=== PATIENT | male | born 1955 | race Caucasian/White ===

== ENCOUNTER 2018-06-23 03:02 | Emergency (ER) | payer OTHER, SELFPAY ==
[2018-06-23] VITALS (85 sets, daily range): BP systolic 92–127; BP diastolic 68–94; PULSE 97–128; RESP 12–28; TEMP 36.1–36.7; O2SAT 80–100
--- NOTE | 2018-06-23 02:53 | W.ED.GENAD ---
Discharge Plan Disposition Patient Disposition: [facility] Condition: Stable Discharge Details Chief Complaint: Orthopedic Clinical Impression: Hyponatremia, Fall, Contusion of hip Reason For Visit: EDD Primary Care Provider: [place] Provider: Donovan Hoover Home Meds and New Rx's Prescriptions: No Action metoprolol tartrate 100 MG tablet 100 mg PO DAILY RF: 0 aspirin [Aspir-81] 81 MG tablet,delayed release (DR/EC) 81 mg PO DAILY RF: 0 omeprazole 20 MG capsule,delayed release(DR/EC) 20 mg PO DAILY RF: 0 lisinopril 5 MG tablet 10 mg PO DAILY RF: 0 albuterol sulfate 8.5 GM HFA aerosol inhaler 2 puff Inhalation .Q4-6H PRNRF: 0 finasteride 5 MG tablet 5 mg PO DAILY RF: 0 Symbicort 160-4.5 mcg/actuation Hfa Aerosol Inhaler 2 puff INHALATION BID RF: 0 Spiriva Respimat 2.5 mcg/actuation Mist 1 puff INHALATION DAILY RF: 0 Medical Decision Making 62 yo male with hx of htn, copd and continued smoker, daily alcohol user of 3-4 beers per patient, comes in with right hip pain. He states he woke up from sleep around midnight and stood up to go to the bathroom. He felt lightheaded and felll landing on his right side. Did not hit his head or have loc per pt. He states he gets lightheaded and dizzy when standing a lot and has so for years. He denies chest pain, sob, headache, neck pain, abdominal pain. He has pain in the right hip and can't move it due to pain. Will obtain xray and given his lightheadeness, obtain ecg, eval for electrolyte abnormalities and cardiac ischemic (though unlikely given lack of chest pain or sob). He has no headache or neck pain and denies hitting head so do not feel head or c spine imaging indicated at this time pt's imaging still pending, labs show na of 119 that is likely beer protomania. xrays unremarkable. Is able to range his right hip but limited due to pain. I spoke with Dr. De Jesus at the [facility] who accepts the pt in transfer Differential Diagnosis fracture, dislocation, contusion Imaging Data Radiologic Study: Attestation: I personally reviewed and interpreted this imaging study as follows: Imaging: X-Ray Radiologist's impression: no acute findings hip xray Radiologic Study #2: Imaging: X-Ray Radiologist's impression: no acute findings femur xray Radiologic Study #3: Attestation: I personally reviewed and interpreted this imaging study as follows: Imaging: X-Ray Radiologist's impression: no acute findings chest xray Lab Data Lab results reviewed: Yes I reviewed the patient's lab results. ECG Data Attestation: I personally reviewed and interpreted this ECG (s) as follows: Prior ECG tracings: available for review Interpretation: sinsu rhyth, rate of 105, pr 154, no acute st t wave changes HPI General Mode of arrival: EMS. Date/Time Provider Initiated Documentation: 06/23/18 03:09. Limitations to Documentation: no limitations. Information obtained by: patient. History of Present Illness 62 year old M presents to the emergency department with the chief complaint of right hip pain, described as moderate and severe, with intensity rated at 8. Quality is described as aching and crushing, and is localized to the right and lower extremity. Patient reports no radiation. Patient started experiencing this hour(s) (3) and it has been constant. No relieving factors improve symptom(s), No exacerbating factors reported . Patient did receive the following treatments prior to arrival, other (fentanyl with ems) Related Data Home Medications Medication Instructions Recorded Confirmed albuterol sulfate 2 puff INHALATION .Q4-6H PRN 07/12/14 06/23/18 aspirin [Aspir-81] 81 mg PO DAILY 07/12/14 06/23/18 finasteride 5 mg PO DAILY 07/12/14 06/23/18 lisinopril 10 mg PO DAILY 07/12/14 06/23/18 metoprolol tartrate 100 mg PO DAILY 07/12/14 06/23/18 omeprazole 20 mg PO DAILY 07/12/14 06/23/18 budesonide-formoterol [Symbicort] 2 puff INHALATION BID 06/23/18 06/23/18 tiotropium bromide [Spiriva 1 puff INHALATION DAILY 06/23/18 06/23/18 Respimat] Allergies Allergy/AdvReac Type Severity Reaction Status Date / Time No Known Allergies Allergy Unverified 07/12/14 10:11 Review of Systems Review of Systems All systems reviewed & are unremarkable except as noted in HPI and below Constitutional Denies chills and Denies fever(s) ENT Denies change in voice Cardiovascular Denies chest pain and Denies dyspnea Respiratory Denies cough and Denies dyspnea Gastrointestinal Denies abdominal pain, Denies nausea and Denies vomiting Genitourinary Denies dysuria Musculoskeletal Denies joint swelling Integumentary/Breasts Denies rash PFSH Social History Smoking/Tobacco Use Status: Current every day Exam Const General: no acute distress Orientation: alert HENMT Head: normal to inspection Ears: external ears normal General nose exam: external nose normal Mouth: moist mucous membranes Eyes General: appearance normal, both eyes and all related structures Neck Neck: normal visual inspection Resp Effort & Inspection: normal respiratory effort and able to speak in complete sentences Cardio Rate: regular rate Skin General skin exam: no rashes or lesions noted Neuro General: alert and oriented x3 Extrem General: normal capillary refill Psych Mental Status: mental status grossly normal
--- NOTE | 2018-06-23 03:08 | ED.GENADUL_ITS ---
Discharge Plan Disposition Patient Disposition: [facility] Condition: Stable Discharge Details Chief Complaint: Orthopedic Clinical Impression: Hyponatremia, Fall, Contusion of hip Reason For Visit: EDD Primary Care Provider: [place] Provider: Donovan Hoover Home Meds and New Rx's Prescriptions: No Action metoprolol tartrate 100 MG tablet 100 mg PO DAILY RF: 0 aspirin [Aspir-81] 81 MG tablet,delayed release (DR/EC) 81 mg PO DAILY RF: 0 omeprazole 20 MG capsule,delayed release(DR/EC) 20 mg PO DAILY RF: 0 lisinopril 5 MG tablet 10 mg PO DAILY RF: 0 albuterol sulfate 8.5 GM HFA aerosol inhaler 2 puff Inhalation .Q4-6H PRNRF: 0 finasteride 5 MG tablet 5 mg PO DAILY RF: 0 Symbicort 160-4.5 mcg/actuation Hfa Aerosol Inhaler 2 puff INHALATION BID RF: 0 Spiriva Respimat 2.5 mcg/actuation Mist 1 puff INHALATION DAILY RF: 0 Medical Decision Making 62 yo male with hx of htn, copd and continued smoker, daily alcohol user of 3-4 beers per patient, comes in with right hip pain. He states he woke up from sleep around midnight and stood up to go to the bathroom. He felt lightheaded and felll landing on his right side. Did not hit his head or have loc per pt. He states he gets lightheaded and dizzy when standing a lot and has so for years. He denies chest pain, sob, headache, neck pain, abdominal pain. He has pain in the right hip and can't move it due to pain. Will obtain xray and given his lightheadeness, obtain ecg, eval for electrolyte abnormalities and cardiac ischemic (though unlikely given lack of chest pain or sob). He has no headache or neck pain and denies hitting head so do not feel head or c spine imaging indicated at this time pt's imaging still pending, labs show na of 119 that is likely beer protomania. xrays unremarkable. Is able to range his right hip but limited due to pain. I spoke with Dr. De Jesus at the [facility] who accepts the pt in transfer Differential Diagnosis fracture, dislocation, contusion Imaging Data Radiologic Study: Attestation: I personally reviewed and interpreted this imaging study as follows: Imaging: X-Ray Radiologist's impression: no acute findings hip xray Radiologic Study #2: Imaging: X-Ray Radiologist's impression: no acute findings femur xray Radiologic Study #3: Attestation: I personally reviewed and interpreted this imaging study as follows: Imaging: X-Ray Radiologist's impression: no acute findings chest xray Lab Data Lab results reviewed: Yes I reviewed the patient's lab results. ECG Data Attestation: I personally reviewed and interpreted this ECG (s) as follows: Prior ECG tracings: available for review Interpretation: sinsu rhyth, rate of 105, pr 154, no acute st t wave changes HPI General Mode of arrival: EMS . Date/Time Provider Initiated Documentation: 06/23/18 03:09 . Limitations to Documentation: no limitations . Information obtained by: patient . History of Present Illness 62 year old M presents to the emergency department with the chief complaint of right hip pain, described as moderate and severe, with intensity rated at 8. Quality is described as aching and crushing, and is localized to the right and lower extremity. Patient reports no radiation. Patient started experiencing this hour(s) (3) and it has been constant. No relieving factors improve symptom(s), No exacerbating factors reported . Patient did receive the following treatments prior to arrival, other (fentanyl with ems) Related Data Home Medications Medication Instructions Recorded Confirmed albuterol sulfate 2 puff INHALATION .Q4-6H PRN 07/12/14 06/23/18 aspirin [Aspir-81] 81 mg PO DAILY 07/12/14 06/23/18 finasteride 5 mg PO DAILY 07/12/14 06/23/18 lisinopril 10 mg PO DAILY 07/12/14 06/23/18 metoprolol tartrate 100 mg PO DAILY 07/12/14 06/23/18 omeprazole 20 mg PO DAILY 07/12/14 06/23/18 budesonide-formoterol [Symbicort] 2 puff INHALATION BID 06/23/18 06/23/18 tiotropium bromide [Spiriva 1 puff INHALATION DAILY 06/23/18 06/23/18 Respimat] Allergies Allergy/AdvReac Type Severity Reaction Status Date / Time No Known Allergies Allergy Unverified 07/12/14 10:11 Review of Systems Review of Systems All systems reviewed & are unremarkable except as noted in HPI and below Constitutional Denies chills and Denies fever(s) ENT Denies change in voice Cardiovascular Denies chest pain and Denies dyspnea Respiratory Denies cough and Denies dyspnea Gastrointestinal Denies abdominal pain, Denies nausea and Denies vomiting Genitourinary Denies dysuria Musculoskeletal Denies joint swelling Integumentary/Breasts Denies rash PFSH Social History Smoking/Tobacco Use Status: Current every day Exam Const General: no acute distress Orientation: alert HENMT Head: normal to inspection Ears: external ears normal General nose exam: external nose normal Mouth: moist mucous membranes Eyes General: appearance normal, both eyes and all related structures Neck Neck: normal visual inspection Resp Effort & Inspection: normal respiratory effort and able to speak in complete sentences Cardio Rate: regular rate Skin General skin exam: no rashes or lesions noted Neuro General: alert and oriented x3 Extrem General: normal capillary refill Psych Mental Status: mental status grossly normal
[2018-06-23 03:22] LABS: Abs Immature Grans 0.04 k/cumm (0.0-0.09); Absolute Basophil Count 0.05 k/cumm (0.0-0.2); Absolute Eosinophil Count 0.18 k/cumm (0.0-0.7); Absolute Lymphocyte Count 1.06 k/cumm (1.2-3.4); Absolute Monocyte Count 0.55 k/cumm (0.11-0.7); Absolute Neutrophil Count 8.51 k/cumm (1.2-6.7); Basophils % 0.5; Eosinophils % 1.7; HCT 39.3 % (40.0-50.0); HGB 14.3 g/dL (13.5-17.5); Immature Grans % 0.4; Lymphocytes % 10.2; Mean Corp. HGB Concentration 36.4 g/dL (32.0-36.0); Mean Corpuscular Volume 93.6 fL (80-95); Mean Platelet Volume 8.9 fL (8.0-11.0); Monocytes % 5.3; Neutrophils % 81.9; Platelet Count 179 x1000/uL (130-400); RBC Distribution Width 12.5 % (11.8-14.1); White Blood Cell Count 10.39 k/cumm (4.4-10.8)
[2018-06-23 03:33] LABS: Magnesium 1.9 mg/dL (1.8-2.4)
[2018-06-23 03:39] LABS: ALT 91 U/L (12-78); AST 120 U/L (15-37); Albumin 4.1 g/dL (3.4-5.0); Alkaline Phosphatase 137 U/L (46-116); Anion Gap 16.4 mmol/L (3-11); BUN 6 mg/dL (7-18); Bilirubin, Total 0.6 mg/dL (0.2-1.0); CO2 20.6 mmol/L (21.0-32.0); CREATININE 0.52 mg/dL (0.70-1.30); Calcium 8.7 mg/dL (8.5-10.1); Chloride 82 mmol/L (98-107); Glucose 93 mg/dL (70-100); Potassium 4.5 mmol/L (3.5-5.1); Total Protein 7.8 g/dL (6.4-8.2)
[2018-06-23 03:40] LABS: PTT Activated 24.6 sec (21.0-31.4); Prothrombin Time 9.9 sec (9.3-11.0)
[2018-06-23 03:43] LABS: Troponin I < 0.02 ng/mL (0.00-0.06)
[2018-06-23 03:44] LABS: Sodium 119 mmol/L (136-145)
[2018-06-23] MEDS: HYDROmorphone 2 MG/ML VIAL 1 MG IVP ×2 (03:46→05:15)
[2018-06-23] MEDS: Ondansetron 4 MG/2 ML VIAL IVP (03:46)
[2018-06-23] MEDS: Normal Saline 50 ML 200 ML (03:47)
[2018-06-23] MEDS: Normal Saline Flush 10 ML SYR IVP (03:47)
--- NOTE | 2018-06-23 03:49 | DI.RAD_ITS ---
SYMPTOM/DIAGNOSIS: FALL. CHEST X-RAY: Frontal views were obtained. Comparison 07/07/16 The heart size and pulmonary vasculature are within normal limits. There are old bilateral rib fractures. The lungs show no evidence of acute pneumonia or congestive heart failure. The lungs show evidence of underlying COPD and pulmonary scarring. No effusions or pneumothoraces are identified. IMPRESSION: No acute pulmonary process.
--- NOTE | 2018-06-23 03:49 | DI.COMBO_ITS ---
SYMPTOM/DIAGNOSIS: PAIN, S/P FALL. RIGHT HIP PAIN RIGHT FEMUR, RT HIP AND PELVIS: No acute fracture or dislocation is identified. There is again seen an intramedullary shey and nail transfixing an old right femoral neck fracture. The orthopaedic hardware appears intact. The soft tissues are grossly unremarkable. IMPRESSION: No acute fracture or dislocation.
[2018-06-23] MEDS: Normal Saline 1,000 ML 75 ML IV (03:50)
[2018-06-23 06:06] LABS: Sodium, Urine 21 mmol/L
--- NOTE | 2018-06-23 06:53 | DI.VRAD_ITS ---
EXAM: XR Right Hip with Pelvis when Performed, 2 or 3 Views EXAM DATE/TIME: 06/23/2018 3:04 AM CLINICAL HISTORY: 62 years old, male; Injury or trauma; Fall; Initial encounter; Blunt trauma (contusions or hematomas); Right; Hip; Injury date: 06/23/2018; Prior surgery; Surgery date: 6+ months; Surgery type: Femur shey TECHNIQUE: XR Right hip with pelvis when performed, 2 or 3 views COMPARISON: CR RIGHT HIP 1 VIEW 07/12/2014 12:37 PM FINDINGS: Bones/joints: Right femoral shey and hip screw grossly intact as visualized No acute fracture. Peak generative changes in the hip and lower lumbar spine Soft tissues: Normal. IMPRESSION: No acute fracture observed Dictated and Authenticated by: Lawson Melgar MD. Ordering:JACEK Man MD
--- NOTE | 2018-06-23 06:53 | DI.VRAD_ITS ---
EXAM: XR Right Femur, 2 Views EXAM DATE/TIME: 06/23/2018 3:09 AM CLINICAL HISTORY: 62 years old, male; Injury or trauma; Fall; Initial encounter; Blunt trauma; Hip; Right; Injury date: 06/23/2018; Prior surgery; Surgery date: 6+ months; Surgery type: Femur shey TECHNIQUE: XR Right femur, 2 views COMPARISON: No relevant prior studies available. FINDINGS: Bones/joints: Femoral shey grossly intact as visualized No acute fracture. Soft tissues: Normal. IMPRESSION: No acute findings. Dictated and Authenticated by: Lawson Melgar MD. Ordering:JACEK Man MD
--- NOTE | 2018-06-23 06:53 | DI.VRAD_ITS ---
EXAM: XR Chest, 1 View EXAM DATE/TIME: 06/23/2018 3:04 AM CLINICAL HISTORY: 62 years old, male; Injury or trauma; Fall; Initial encounter; Blunt trauma (contusions or hematomas); Injury date: 06/23/2018; Injury details: Fell in home, ? hip fracture TECHNIQUE: XR of the chest, 1 view. COMPARISON: CR CHEST 2 VIEWS PA,LAT 07/07/2016 1:24 PM FINDINGS: Lungs: Emphysema and scarring is grossly stable No consolidation. Pleural space: No pleural effusion. No pneumothorax. Heart/Mediastinum: Grossly stable. Bones/joints: Chronic bilateral rib fractures are grossly stable Surgical clips are grossly stable in appearance IMPRESSION: Grossly stable radiographic appearance to the chest. Further evaluation as clinically indicated Dictated and Authenticated by: Lawson Melgar MD. Ordering:JACEK Man MD
[2018-06-23] MEDS: LORazepam 2 MG/ML VIAL IVP (08:02)
== END 2018-06-23 11:07 | disposition short-term general hospital (02) ==
PROVIDERS: Emergency Provider Emergency Medicine; PCP Internal Medicine
DX: E87.1 Hypo-osmolality and hyponatremia (principal); S70.01XA Contusion of right hip, initial encounter; R42 Dizziness and giddiness; I10 Essential (primary) hypertension; J44.9 Chronic obstructive pulmonary disease, unspecified; F17.210 Nicotine dependence, cigarettes, uncomplicated; W01.0XXA Fall on same level from slipping, tripping and stumbling without subsequent striking against object, initial encounter
CPT/HCPCS: 36415; 73552; 80053; 86850; 86900; 86901; 93005; 96361; 96374; 96375; 96376; 99285; 71045; 73502; 80320; 83735; 84300; 84484; 85025; 85610; 85730; 93010; J2060; J2405

== ENCOUNTER 2018-07-08 12:14 | Outpatient (REF) | payer OTHER, SELFPAY ==
[2018-07-08 13:56] LABS: BUN 11 mg/dL (7-18); CREATININE 0.46 mg/dL (0.70-1.30); Calcium 9.1 mg/dL (8.5-10.1); Chloride 99 mmol/L (98-107); Glucose 89 mg/dL (70-100); Potassium 4.3 mmol/L (3.5-5.1); Sodium 134 mmol/L (136-145)
== END 2018-07-08 12:34 ==
LOC: LBN 12:14
PROVIDERS: PCP Internal Medicine; Visit Provider Internal Medicine
DX: E87.1 Hypo-osmolality and hyponatremia (principal)
CPT/HCPCS: 80048

== ENCOUNTER 2018-07-15 14:16 | Outpatient (REF) | payer OTHER, SELFPAY ==
[2018-07-15 14:50] LABS: ALT 21 U/L (12-78); AST 21 U/L (15-37); Albumin 3.3 g/dL (3.4-5.0); Alkaline Phosphatase 266 U/L (46-116); Anion Gap 9.6 mmol/L (3-11); BUN 12 mg/dL (7-18); Bilirubin, Total 0.2 mg/dL (0.2-1.0); CO2 26.4 mmol/L (21.0-32.0); CREATININE 0.54 mg/dL (0.70-1.30); Calcium 8.5 mg/dL (8.5-10.1); Chloride 98 mmol/L (98-107); Glucose 96 mg/dL (70-100); Potassium 3.7 mmol/L (3.5-5.1); Sodium 134 mmol/L (136-145); Total Protein 6.4 g/dL (6.4-8.2)
== END 2018-07-15 14:36 ==
LOC: NCHCN 14:16
PROVIDERS: PCP Internal Medicine; Visit Provider Internal Medicine
DX: E87.1 Hypo-osmolality and hyponatremia (principal)
CPT/HCPCS: 80053

== ENCOUNTER 2018-07-22 12:42 | Outpatient (REF) | payer OTHER, SELFPAY ==
[2018-07-22 14:06] LABS: ALT 19 U/L (12-78); AST 16 U/L (15-37); Albumin 3.1 g/dL (3.4-5.0); Alkaline Phosphatase 230 U/L (46-116); Anion Gap 9.5 mmol/L (3-11); BUN 10 mg/dL (7-18); Bilirubin, Total 0.2 mg/dL (0.2-1.0); CO2 25.5 mmol/L (21.0-32.0); CREATININE 0.52 mg/dL (0.70-1.30); Calcium 8.2 mg/dL (8.5-10.1); Chloride 100 mmol/L (98-107); Glucose 132 mg/dL (70-100); Potassium 3.7 mmol/L (3.5-5.1); Sodium 135 mmol/L (136-145); Total Protein 6.1 g/dL (6.4-8.2)
== END 2018-07-22 13:02 ==
LOC: LBN 12:42
PROVIDERS: PCP Internal Medicine; Visit Provider Internal Medicine
DX: J44.9 Chronic obstructive pulmonary disease, unspecified (principal); I10 Essential (primary) hypertension
CPT/HCPCS: 80053

== ENCOUNTER 2018-07-29 14:17 | Outpatient (REF) | payer OTHER, SELFPAY ==
[2018-07-29 14:57] LABS: ALT 21 U/L (12-78); AST 19 U/L (15-37); Albumin 3.6 g/dL (3.4-5.0); Alkaline Phosphatase 203 U/L (46-116); Anion Gap 10.7 mmol/L (3-11); BUN 10 mg/dL (7-18); Bilirubin, Total 0.3 mg/dL (0.2-1.0); CO2 25.3 mmol/L (21.0-32.0); CREATININE 0.59 mg/dL (0.70-1.30); Calcium 9.1 mg/dL (8.5-10.1); Chloride 100 mmol/L (98-107); Glucose 111 mg/dL (70-100); Potassium 4.1 mmol/L (3.5-5.1); Sodium 136 mmol/L (136-145)
== END 2018-07-29 14:37 ==
LOC: LBN 14:17
PROVIDERS: PCP Internal Medicine; Visit Provider Internal Medicine
DX: E22.2 Syndrome of inappropriate secretion of antidiuretic hormone (principal)
CPT/HCPCS: 80053

== ENCOUNTER 2019-04-02 10:35 | Emergency (ER) | payer OTHER, SELFPAY ==
[2019-04-02] VITALS (7 sets, daily range): BP systolic 98–127; BP diastolic 70–92; PULSE 93–114; RESP 11–25; TEMP 35.8; O2SAT 94–97
--- NOTE | 2019-04-02 10:44 | W.ED.GENAD ---
Discharge Plan Discharge Details Chief Complaint: Orthopedic Primary Care Provider: Donovan Mcbride ED Provider: Donna Gore Home Meds and New Rx's Prescriptions: No Action aspirin [Aspir-81] 81 MG tablet,delayed release (DR/EC) 81 mg PO DAILY RF: 0 omeprazole 20 MG capsule,delayed release(DR/EC) 20 mg PO DAILY RF: 0 lisinopril 5 MG tablet 10 mg PO DAILY RF: 0 albuterol sulfate 8.5 GM HFA aerosol inhaler 2 puff Inhalation .Q4-6H PRNRF: 0 finasteride 5 MG tablet 5 mg PO DAILY RF: 0 amlodipine 5 mg Tablet 5 mg PO DAILY RF: 0 tamsulosin [Flomax] 0.4 mg Capsule 0.4 mg PO DAILY RF: 0 Symbicort 160-4.5 mcg/actuation Hfa Aerosol Inhaler 2 puff INHALATION BID RF: 0 Spiriva Respimat 2.5 mcg/actuation Mist 1 puff INHALATION DAILY RF: 0 Discharge Data Discharge Date/Time-TO BE ENTERED AT DEPARTURE: 04/02/19 14:09 Medical Decision Making Patient is 63-year-old male history of BPH, COPD, GERD, hypertension, [place] and chronic alcohol use. Patient is brought in via EMS after fall at home. Reports that he fell after tripping over his cat landing directly onto his right knee. Denies other injury the time of the incident. Patient does smell of alcohol but seems clinically sober. Did not strike of head. No loss of consciousness. States he has never had issues with his knee before, no previous surgeries. Has not been able to ambulate since the time of the fall. Patient given 150 mcg of fentanyl with no real change in his discomfort. Patient was endorsing severe pain in his knee but holds onto his thigh more when reporting pain. Pain seems very much out of proportion with exam. No notable deformity. She does have a small effusion. No evidence of ecchymosis, laceration. He has good distal pulses, no calf tenderness. Able to move his toes well, no change in sensation noted. Plan for imaging. Will give Dilaudid to help with discomfort prior to going to x-ray. Despite 150 mcg of fentanyl and 2 mg of Dilaudid, patient is refusing to move for imaging. X-ray contacted apartment with concerns for the patient's pain and ability to perform imaging. They recommended instead of changing to a noncontrast CT. I do agree with this assessment given the patient's level of discomfort. Order changed to noncontrast CT of the femur and knee. Reviewed CT note today displaced comminuted distal femur fracture. This does not involve the patient's proximal nail. Will consult orthopedics. Consulted with Dr. Jo who advised that appropriate for equipment given the patient's history and fracture is not available here and advised transfer to higher level of care. Consulted with [facility]. Awaiting callback. I requested that imaging be sent out to their facility. Patient has waxing and waning sudden onset of discomfort. He does seem anxious and concerned regarding his large amount of alcohol intake daily. Will give Ativan to help with symptomatic management. Patient is requesting oxygen. I rechecked his O2 and is 98% on room air. However, he does report that he uses albuterol as needed for emphysema. Will give an albuterol nebulizer. Consulted with Dr. Morales with trauma at [facility], he reviewed the images and accepted patient in transfer as a trauma alert. Patient feeling much improved after IV valium. For other [facility] will [facility] them prior to transferring the patient to [facility]. Consult with Dr. Hardy with orthopedics at the OR and they agreed to have the patient in transfer. [facility] by [facility] just prior to patient being discharged who advised that they also do not have the appropriate equipment. Instead, we will transfer the patient to [facility] as initially planned. Discussed this plan with the patient who is in agreement. HPI General Mode of arrival: EMS. Date/Time Provider Initiated Documentation: 04/02/19 10:44. Limitations to Documentation: no limitations. Information obtained by: patient and RN notes reviewed. HPI Narrative: Patient is a 63-year-old male presenting today, brought in via EMS, with chief complaint of right knee pain. He reports that prior to arrival, he tripped over his cat and fell landing directly onto the right knee. Since that time, he has been laying in the same spot until EMS arrived secondary to severe pain. Patient was given 150 mcg of fentanyl per EMS reports only minimal improvement in pain management. He reports that he drank approximately 8 beers per day, states he had 1 alcoholic beverage this morning.. States that he has had use narcotics daily in 2013 but at that time was only for 2 months stent. He denies any numbness or tingling. Denies any other injury the time of the exam. Denies strike his head, no loss of conscious. Pain does not radiate. Related Data Home Medications Medication Instructions Recorded Confirmed albuterol sulfate 2 puff INHALATION .Q4-6H PRN 07/12/14 04/02/19 aspirin [Aspir-81] 81 mg PO DAILY 07/12/14 04/02/19 finasteride 5 mg PO DAILY 07/12/14 04/02/19 lisinopril 10 mg PO DAILY 07/12/14 04/02/19 omeprazole 20 mg PO DAILY 07/12/14 04/02/19 budesonide-formoterol [Symbicort] 2 puff INHALATION BID 06/23/18 04/02/19 tiotropium bromide [Spiriva 1 puff INHALATION DAILY 06/23/18 04/02/19 Respimat] amlodipine 5 mg PO DAILY 04/02/19 04/02/19 tamsulosin [Flomax] 0.4 mg PO DAILY 04/02/19 04/02/19 Allergies Allergy/AdvReac Type Severity Reaction Status Date / Time No Known Allergies Allergy Unverified 04/02/19 10:47 General CLARISA: 3 Review of Systems Constitutional Constitutional: Reports as per HPI, Denies chills, Denies fever(s), Denies headache(s) and Denies weakness ENT Ears, Nose, Mouth, and Throat: Denies headache(s) Cardiovascular Cardiovascular: Reports as per HPI and Denies chest pain Respiratory Respiratory: Reports as per HPI and Denies cough Gastrointestinal Gastrointestinal: Denies abdominal pain and Denies fecal incontinence Genitourinary Genitourinary: Denies urinary incontinence Musculoskeletal Musculoskeletal: Reports as per HPI and Denies tingling Integumentary/Breasts Skin/Breast: Reports as per HPI, Denies rash and Denies wounds Neurologic Neurologic: Reports as per HPI, Denies headache(s), Denies tingling, Denies paresthesias and Denies weakness [facility] Social History Smoking/Tobacco Use Status: Current every day Alcohol Intake: current Alcohol Intake frequency: 0-2 drinks per day Alcohol type: beer Drug use: Never Substance use type: does not use Details: 8 beers a day on average. Do you feel safe at home: Yes Do you feel safe in your relationship?: Yes Exam Const General: cooperative, healthy appearing, uncomfortable, no acute distress, well developed and well groomed Nutritional Appearance: average body habitus and well nourished Orientation: alert and awake Resp Effort & Inspection: normal respiratory effort, able to speak in complete sentences and no respiratory distress Auscultation: clear to auscultation bilaterally Cardio Rate: regular rate Rhythm: regular rhythm Heart Sounds: S1 normal and S2 normal GI Inspection: normal to inspection Palpation: soft and nontender Back/Spine/Pelvis Back: no CVA tenderness Cervical Spine: normal cervical lordosis and cervical ROM normal Thoracic/Lumbar Spine: thoracic and lumbar spine normal to inspection, No paraspinal tenderness, No thoracic spinal tenderness and No lumbar spinal tenderness Pelvis: no pain with anterior-posterior compression and no pain with lateral compression Sacroiliac joints: bilaterally nontender Skin General skin exam: no rashes or lesions noted Lesions: no lesions Rashes: no rashes Trauma: no lacerations or abrasions Neuro General: alert and awake Cognition: normal cognition Speech: speech normal Sensory Exam: no sensory deficits noted (No saddle paresthesias, sensation intact distal to injury) Extrem Right lower extremity: normal capillary refill, hip/thigh (No pain to palpation about the hip), knee (Small effusion is palpable. Patient would not allow me to move, no ecchymo), lower leg Details: normal to inspection and no edema; no erythema, no tenderness, no localized swelling and no palpable cords, ankle Details: normal to inspection and no edema; no tenderness and no swelling and foot (2+ distal pulses, able to move all of his toes); abnormal to inspection (Exam is limited secondary to patient's discomfort) and ROM limited (Unable to assess at this time) Psych Appearance: grossly normal and well kempt Mental Status: mental status grossly normal Speech and Movement: speech and movement normal
[2019-04-02] MEDS: HYDROmorphone 2 MG/ML VIAL IVP (10:50)
[2019-04-02] MEDS: Normal Saline 500 ML IV (10:51)
--- NOTE | 2019-04-02 11:58 | DI.CT_ITS ---
EXAM: CT LOWER EXTREMITY RT WO CLINICAL HISTORY: fall,PAIN TECHNIQUE: The exam was performed according to the usual protocol without contrast. COMPARISON: XR femur RT from 06/23/2018 XR hip RT complete AP pelvis from 06/23/2018 FINDINGS: There are old healed fractures involving the right superior and inferior pubic rami. There an intram edullary shey and screw transfixing an old healed proximal right femoral fracture. The orthopedic toya dware appears in good position. No lucencies are seen in or about the orthopedic hardware. There is a comminuted and impacted fracture involving the diaphyseal region of the distal right femur . The fracture extends into the joint space. The fracture and extends distally into the lateral fem oral condyle. There is a question of a minimally depressed fracture involving the lateral tibial plateau. There is a hemarthrosis which is of small to moderate in size. There is edema and hemorrhage in the posterior aspect of the right knee and thigh. The bones are osteopenic. IMPRESSION: 1. Comminuted impacted intra-articular fracture involving the distal femoral metadiaphysis. The frac ture line extends distally through the lateral femoral condyle. 2. Heme arthrosis and hemorrhage in the soft tissues of the posterior knee and thigh. 3. Stable postsurgical changes of an old proximal right femoral fracture.
--- NOTE | 2019-04-02 12:25 | DI.VRAD_ITS ---
PROCEDURE INFORMATION: Exam: CT Right Lower Extremity Without Contrast; Thigh Exam date and time: 04/02/2019 11:27 AM Age: 63 years old Clinical indication: Injury or trauma; Initial encounter; Blunt trauma; Hip and thigh or upper leg and knee; Right; Injury details: Fall. Pain; Prior surgery; Surgery date: 6+ months; Surgery type: Femur shey; Patient HX: Limited scan. PT scanned lying on left side. Unable to lay supine TECHNIQUE: Imaging protocol: CT of the Right lower extremity without contrast was performed. Exam focused on the thigh. Radiation optimization: All CT scans at this facility use at least one of these dose optimization techniques: automated exposure control; mA and/or kV adjustment per patient size (includes targeted exams where dose is matched to clinical indication); or iterative reconstruction. COMPARISON: CR XR femur RT 06/23/2018 3:30 AM FINDINGS: Bones/joints: Osteopenia. Remote fracture of the inferior pubic ramus on the right. Intramedullary rods and screws in the right femur are in place. No perihardware lucency to suggest loosening. Degenerative changes of the lower lumbar spine and sacroiliac joints. There is a comminuted impacted intra-articular fracture of the distal femoral metadiaphysis. The fracture line extends through the lateral femoral condyle. Soft tissues: There is soft tissue edema and high-density fluid/hemorrhage at the posterior aspect of the knee and distal thigh. Small to moderate knee joint effusion with hemarthrosis. Vasculature: Atherosclerotic disease. IMPRESSION: 1. Comminuted impacted intra-articular fracture of the distal femoral metadiaphysis which extends through the lateral femoral condyle. This is new since radiograph dated June 23, 2018. 2. Hemarthrosis and post contusional changes at the posterior aspect of the knee and distal thigh. Dictated and Authenticated by: Mónica Rossi MD. Ordering:BIJAL Thompson MD
[2019-04-02] MEDS: Albuterol 2.5 MG/3 ML INH SOLN VIAL UPD (12:32)
[2019-04-02] MEDS: diazePAM 10 MG/2 ML SYR 5 MG IVP ×2 (12:36→13:52)
== END 2019-04-02 14:09 ==
LOC: ER 12:17
PROVIDERS: Emergency Provider Physician Assistant; PCP Internal Medicine
DX: S72.351A Displaced comminuted fracture of shaft of right femur, initial encounter for closed fracture (principal); W01.0XXA Fall on same level from slipping, tripping and stumbling without subsequent striking against object, initial encounter; F17.210 Nicotine dependence, cigarettes, uncomplicated; I10 Essential (primary) hypertension; J44.9 Chronic obstructive pulmonary disease, unspecified
CPT/HCPCS: 51702; 94640; 96361; 96374; 96375; 99285; 73700; J3360; J7613

== ENCOUNTER 2019-05-02 11:56 | Outpatient (CLI) | payer OTHER, SELFPAY ==
[2019-05-02 12:30] LABS: Abs Immature Grans 0.03 k/cumm (0.0-0.09); Absolute Basophil Count 0.11 k/cumm (0.0-0.2); Absolute Eosinophil Count 0.59 k/cumm (0.0-0.7); Absolute Lymphocyte Count 1.03 k/cumm (1.2-3.4); Absolute Monocyte Count 0.82 k/cumm (0.11-0.7); Absolute Neutrophil Count 8.27 k/cumm (1.2-6.7); Eosinophils % 5.4; HCT 33.9 % (40.0-50.0); HGB 10.6 g/dL (13.5-17.5); Immature Grans % 0.3 %; Lymphocytes % 9.5; Mean Corp. HGB Concentration 31.3 g/dL (32.0-36.0); Mean Platelet Volume 9.6 fL (8.0-11.0); Monocytes % 7.6; Neutrophils % 76.2; Platelet Count 444 x1000/uL (130-400); RBC 3.53 m/cumm (4.50-6.00); RBC Distribution Width 15.5 % (11.8-14.1); White Blood Cell Count 10.85 k/cumm (4.4-10.8)
[2019-05-02 12:55] LABS: Anion Gap 8.7 mmol/L (3-11); BUN 10 mg/dL (7-18); CO2 29.3 mmol/L (21.0-32.0); CREATININE 0.64 mg/dL (0.70-1.30); Calcium 9.4 mg/dL (8.5-10.1); Chloride 95 mmol/L (98-107); Glucose 84 mg/dL (74-106); Sodium 133 mmol/L (136-145)
== END 2019-05-02 12:16 ==
PROVIDERS: PCP Internal Medicine; Visit Provider Nurse Practitioner Adult Health
DX: E87.1 Hypo-osmolality and hyponatremia (principal)
CPT/HCPCS: 80048; 85025

== ENCOUNTER 2019-07-13 11:11 | Inpatient (IN) | payer OTHER, SELFPAY ==
[2019-07-13] VITALS (47 sets, daily range): BP systolic 120–168; BP diastolic 85–106; PULSE 99–142; RESP 2–28; TEMP 36.3–37.3; O2SAT 94–100
--- NOTE | 2019-07-13 11:32 | DI.CT_ITS ---
EXAM: CT CHEST PE CTA CLINICAL HISTORY: SOB, left chest pain, recent leg fracture TECHNIQUE: Axial CT angiography was performed with multi-slice acquisition and multi-planar and/or [address] angiography of the chest was performed with bolus infusion of 100 cc of Omnipaque 350. COMPARISON: ABD PELVIS WITH CONTRAST from 01/13/2011 XR CHEST 1V IN DI DEPT from 06/23/2018 FINDINGS: Images obtained through the upper abdomen show unremarkable appearance of visualized portions of the liver, spleen, pancreas, adrenals, and kidneys. There are severe changes of bullous emphysema. There is elevation of the diaphragm on the right as n oted on multiple prior examinations. There are multiple old rib fractures bilaterally. There are new fractures of the right 9th and 10th ribs laterally most clearly visualized on the sagit manuel reconstruction. No associated pneumothorax, hemothorax, or pleural effusion. The tracheobronchial tree appears intact. No gross pulmonary emboli although the examination is of i s suboptimal technical quality particularly in the lower lobes due to breathing artifact. Thoracic a lillie is top limits of normal at about 39 millimeters ascending aorta diameter. No evidence of dissec tion or significant aneurysm. No mediastinal or hilar adenopathy. IMPRESSION: Right 9th and 10th rib fractures which appear to be new, posterolaterally. Multiple old rib fracture s noted bilaterally. No other significant acute finding. Severe emphysema.
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
[2019-07-13] MEDS: methylPREDNISolone SUCC 125 MG VIAL IVP (11:45)
[2019-07-13 11:54] LABS: Abs Immature Grans 0.02 k/cumm (0.0-0.09); Absolute Basophil Count 0.03 k/cumm (0.0-0.2); Absolute Eosinophil Count 0.23 k/cumm (0.0-0.7); Absolute Lymphocyte Count 1.04 k/cumm (1.2-3.4); Absolute Monocyte Count 0.49 k/cumm (0.11-0.7); Absolute Neutrophil Count 5.15 k/cumm (1.2-6.7); Basophils % 0.4; Eosinophils % 3.3; HCT 34.7 % (40.0-50.0); HGB 12.3 g/dL (13.5-17.5); Immature Grans % 0.3 %; Lymphocytes % 14.9; Mean Corp. HGB Concentration 35.4 g/dL (32.0-36.0); Mean Corpuscular Hemoglobin 28.5 pg (27.0-33.0); Mean Corpuscular Volume 80.5 fL (80-95); Mean Platelet Volume 8.5 fL (8.0-11.0); Neutrophils % 74.1; Platelet Count 326 x1000/uL (130-400); RBC 4.31 m/cumm (4.50-6.00); RBC Distribution Width 15.7 % (11.8-14.1); White Blood Cell Count 6.96 k/cumm (4.4-10.8)
[2019-07-13] MEDS: Normal Saline - Diluent 50 ML VIAL IV (12:07)
[2019-07-13] MEDS: Omnipaque 350 MG/ML 100 ML BTL IV (12:07)
[2019-07-13 12:17] LABS: Troponin I < 0.05 ng/Ml (<0.06)
[2019-07-13 12:24] LABS: ALT 29 U/L (16-63); AST 33 U/L (15-37); Albumin 3.7 g/dL (3.4-5.0); Alkaline Phosphatase 89 U/L (46-116); Anion Gap 12.6 mmol/L (3-11); BUN 6 mg/dL (7-18); Bilirubin, Total 0.4 mg/dL (0.2-1.0); CO2 21.4 mmol/L (21.0-32.0); CREATININE 0.52 mg/dL (0.70-1.30); Calcium 8.6 mg/dL (8.5-10.1); Chloride 90 mmol/L (98-107); Glucose 68 mg/dL (74-106); NT-proBNP 78 pg/mL (<300); Potassium 4.7 mmol/L (3.5-5.1); Total Protein 6.9 g/dL (6.4-8.2)
[2019-07-13 12:27] LABS: Sodium 124 mmol/L (136-145)
[2019-07-13] MEDS: Albuterol/Ipratropium 3 ML UPD VIAL UPD ×2 (12:30→17:54)
[2019-07-13] MEDS: Albuterol 2.5 MG/3 ML INH SOLN VIAL UPD ×2 (12:45)
[2019-07-13] MEDS: LORazepam 2 MG/ML VIAL 1 MG IVP (13:18)
[2019-07-13] MEDS: levoFLOXacin 750 MG/150 ML BAG 100 MG IVPB (13:35)
[2019-07-13 13:41] LABS: LDH 151 U/L (85-227)
[2019-07-13 13:44] LABS: C-Reactive Protein < 0.05 mg/dL (0.0-0.3)
[2019-07-13 13:58] LABS: D-Dimer 852 ng/mlFEU (<500)
[2019-07-13 15:52] LABS: Troponin I < 0.05 ng/Ml (<0.06)
[2019-07-13] MEDS: Normal Saline Flush 10 ML SYR IVP (16:15)
[2019-07-13] MEDS: Normal Saline 1,000 ML 100 ML IV (16:17)
[2019-07-13] MEDS: Enoxaparin 40 MG/0.4 ML SYR SC (16:54)
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
[2019-07-13] MEDS: Acetaminophen 325 MG TAB PO (17:45)
[2019-07-13] MEDS: methylPREDNISolone SUCC 125 MG VIAL 60 MG IVP (17:55)
[2019-07-13 19:39] LABS: Troponin I < 0.05 ng/Ml (<0.06)
[2019-07-13] MEDS: Budesonide/Formoterol 160/4.5 6 GM 60 PUFF INH IH (20:17)
[2019-07-13] MEDS: Benzonatate 200 MG CAP PO (20:29)
[2019-07-13] MEDS: guaiFENesin 600 MG TABCR PO (20:29)
[2019-07-13] MEDS: Ibuprofen 600 MG TAB PO (21:21)
[2019-07-13] MEDS: Melatonin 3 MG TAB 6 MG PO (21:22)
[2019-07-14] VITALS (9 sets, daily range): BP systolic 125–165; BP diastolic 76–97; PULSE 86–114; RESP 18–21; TEMP 35.8–36.8; O2SAT 92–97
[2019-07-14] MEDS: methylPREDNISolone SUCC 125 MG VIAL 60 MG IVP ×3 (01:29→17:51)
[2019-07-14] MEDS: Normal Saline Flush 10 ML SYR IVP ×3 (01:29→17:52)
[2019-07-14] MEDS: Levalbuterol 1.25 MG/3 ML UPD VIAL UPD (05:11)
[2019-07-14 05:17] LABS: *AMPHETAMINES SCREEN URINE Negative (Negative); *BARBITURATES SCREEN URINE Negative (Negative); *BENZODIAZEPINES SCREEN URINE Negative (Negative); Cannabinoids THC POSITIVE (Negative); Cocaine Screen,Urine Negative (Negative); METHADONE URINE SCREEN Negative (Negative); OPIATES URINE SCREEN Negative (Negative); Tricyclic Antidepressants Negative (Negative)
[2019-07-14 06:50] LABS: Abs Immature Grans 0.02 k/cumm (0.0-0.09); Absolute Lymphocyte Count 0.49 k/cumm (1.2-3.4); Absolute Monocyte Count 0.23 k/cumm (0.11-0.7); Absolute Neutrophil Count 4.84 k/cumm (1.2-6.7); HCT 34.9 % (40.0-50.0); HGB 11.8 g/dL (13.5-17.5); Immature Grans % 0.4 %; Lymphocytes % 8.8; Mean Corp. HGB Concentration 33.8 g/dL (32.0-36.0); Mean Corpuscular Hemoglobin 27.7 pg (27.0-33.0); Mean Corpuscular Volume 81.9 fL (80-95); Mean Platelet Volume 9.1 fL (8.0-11.0); Monocytes % 4.1; Neutrophils % 86.7; Platelet Count 298 x1000/uL (130-400); RBC 4.26 m/cumm (4.50-6.00); RBC Distribution Width 15.7 % (11.8-14.1); White Blood Cell Count 5.58 k/cumm (4.4-10.8)
[2019-07-14 07:08] LABS: PHOSPHORUS 3.4 mg/dL (2.6-4.7)
[2019-07-14 07:14] LABS: Anion Gap 9.2 mmol/L (3-11); BUN 14 mg/dL (7-18); CO2 24.8 mmol/L (21.0-32.0); CREATININE 0.49 mg/dL (0.70-1.30); Calcium 8.5 mg/dL (8.5-10.1); Chloride 93 mmol/L (98-107); Glucose 151 mg/dL (74-106); Magnesium 1.6 mg/dL (1.8-2.4); Potassium 4.1 mmol/L (3.5-5.1); Sodium 127 mmol/L (136-145); TSH (W/Ref FT4) 0.32 uIU/mL (0.36-3.74)
[2019-07-14 07:32] LABS: FREE T4 1.17 ng/dL (0.76-1.46)
[2019-07-14] MEDS: Omeprazole 20 MG CAPCR PO (07:51)
[2019-07-14] MEDS: levoFLOXacin 500 MG, levoFLOXacin 250 MG 750 MG PO (07:51)
[2019-07-14] MEDS: Aspirin E.C. 81 MG TABEC PO (07:51)
[2019-07-14] MEDS: Thiamine 100 MG TAB PO (07:51)
[2019-07-14] MEDS: amLODIPine 5 MG TAB PO (07:51)
[2019-07-14] MEDS: Benzonatate 200 MG CAP PO ×3 (07:51→19:46)
[2019-07-14] MEDS: Folic Acid 1 MG TAB PO (07:51)
[2019-07-14] MEDS: guaiFENesin 600 MG TABCR PO ×2 (07:52→19:46)
[2019-07-14] MEDS: Finasteride 5 MG TAB PO (07:52)
[2019-07-14] MEDS: Multivitamin TAB 1 TAB PO (07:52)
[2019-07-14] MEDS: Tamsulosin 0.4 MG CAPCR PO (07:52)
[2019-07-14] MEDS: Lisinopril 5 MG TAB 10 MG PO (07:52)
--- NOTE | 2019-07-14 07:55 | PHA.ADMREV ---
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) COPD exacerbation (Acute) aspartame Adverse Reaction (Unverified 07/13/19 11:31) Other (See Comment) Height 5 ft 2 in Weight 54.1 kg - Renal Dosing Renal Dosing: BUN 14 mg/dL (7-18) D 07/14/19 06:20 Creatinine 0.49 mg/dL (0.70-1.30) L 07/14/19 06:20 Medications needing adjustments: Reviewed (CrCl~73 mL/min Meds OK) - Anticoagulation Anticoagulation: Hgb 11.8 g/dL (13.5-17.5) L 07/14/19 06:20 Hct 34.9 % (40.0-50.0) L 07/14/19 06:20 Plt Count 298 x1000/uL (130-400) 07/14/19 06:20 Creatinine 0.49 mg/dL (0.70-1.30) L 07/14/19 06:20 Medications: Enoxaparin Therapeutic Anticoagulation: N/A Medications: Aspirin - Opiate Usage Evaluate Pain Scale/Pains Meds: N/A Scheduled Bowel Reg ordered if on Opiates?: Yes - Relevant Labs Sodium 127 mmol/L (136-145) L 07/14/19 06:20 Potassium 4.1 mmol/L (3.5-5.1) 07/14/19 06:20 Chloride 93 mmol/L (98-107) L 07/14/19 06:20 Phosphorus 3.4 mg/dL (2.6-4.7) 07/14/19 06:20 Magnesium 1.6 mg/dL (1.8-2.4) L 07/14/19 06:20 C-Reactive Protein < 0.05 mg/dL (0.0-0.3) 07/13/19 11:25 Electrolytes, C-Reactive P, ESR: Reviewed (LOW nA & mA) - Antimicrobial Stewardship Antibiotic appropriateness: Reviewed (LEVAQUIN po FOR NON-PRODUCTIVE COUGH. wbc -ok NO mICRO ??PROPHYLACTIC) Surgical Abx d/c within 24 hr: N/A Culture review/Resistance: N/A - DM Control DM Control: Glucose 151 mg/dL (74-106) H D 07/14/19 06:20 Insulin Dosing: N/A (BG- ELEVATED DUE TO IV STEROIDS) - Heart Failure/WV Heart Failure/WV: Troponin I < 0.05 ng/Ml (<0.06) 07/13/19 19:03 NT-Pro-B Natriuret Pep 78 pg/mL (<300) 07/13/19 11:25 EF%, HARRISON's, B-Blockers, Diuretics: Reviewed (LISINOPRIL & AMLODIPINE AT HOME DOSE) - BP Control BP Control: Blood Pressure 165/95 Blood Pressure 144/86 Blood Pressure 155/97 Blood Pressure 159/97 If elevated: Reviewed (TAKING HOME GARZA OF LISINOPRIL & AMLODIPINE) - QTc Review If Elevated: Reviewed (QTc-448 (Levaquin)) - IV to PO Switch IV Medications: N/A (PA) - Home Meds Home Med List reviewed: Reviewed - Current meds Current Medication Order Review: Reviewed (PATIENT IS ON CIWA PROTOCOL WITH SERAX AND ORAL VITAMINS... WAITING TO SEE IF PATIENT CAN BRING IN HOME SPIRIVA)
[2019-07-14] MEDS: Budesonide/Formoterol 160/4.5 6 GM 60 PUFF INH IH (08:15)
[2019-07-14] MEDS: Magnesium Gluconate 500 MG TAB PO ×2 (09:50→19:46)
[2019-07-14] MEDS: MAGNESIUM SULFATE 4 GM/100 ML BAG IVPB (09:50)
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
--- NOTE | 2019-07-14 11:18 | W.PM.PROGNOT ---
Date of Service Date of service: 07/14/19 Time of Service: 11:18 Assessment and Plan Assessment and plan (1) COPD exacerbation: Status: Acute Assessment and plan: Continue IV corticosteroids along with Xopenex aerosol treatments and oral Levaquin. (2) Alcoholism: Status: Acute Assessment and plan: So far his CIWA scores are remaining low. I put him on prophylactic levels of multivitamin and thiamine and folic acid along with program doses of oxazepam (3) DVT prophylaxis: Status: Acute Assessment and plan: Continue Lovenox (4) Pulmonary cachexia due to chronic obstructive pulmonary disease: Status: Acute Assessment and plan: Consult dietary for nutritional consult. Consult PT OT to evaluate his strength as well as his ability to perform ADLs safely. Subjective Subjective Interval history since last seen: Patient feels less short of breath this morning. He has a moist cough that is minimally productive. He is afebrile. Currently saturating at 93% on 1 L/min by nasal cannula. Sputum was sent this morning for Gram stain and culture. He remains on Levaquin as well as IV corticosteroids and aerosolized bronchodilators for treatment of COPD exacerbation. PCR testing for coronavirus was not performed on admission as it was felt that he was low risk of being a person of interest based on his screening questions. With respect to his alcoholism he shown no acute withdrawal. His CIWA score remains low at 0-4. Telemetry demonstrates normal sinus rhythm in the 90s. Exam Narrative Exam Narrative: Cachectic appearing middle-aged male lying in bed who is very weak. Lungs demonstrate some improved airflow today. He still has some end expiratory wheezes bilaterally. Heart regular rate and rhythm. Abdomen is scaphoid soft and nontender. Objective Objective Clinical Data: Abnormal lab results 07/13/19 07/13/19 07/13/19 Range/Units 11:25 11:25 11:25 RBC 4.31 L (4.50-6.00) m/cumm Hgb 12.3 L (13.5-17.5) g/dL Hct 34.7 L (40.0-50.0) % RDW 15.7 H (11.8-14.1) % Absolute Lymphocytes 1.04 L (1.2-3.4) k/cumm D-Dimer 852 H (<500) ng/mlFEU Sodium 124 L* (136-145) mmol/L Chloride 90 L (98-107) mmol/L Anion Gap 12.6 H (3-11) mmol/L BUN 6 L (7-18) mg/dL Creatinine 0.52 L (0.70-1.30) mg/dL Glucose 68 L (74-106) mg/dL Magnesium (1.8-2.4) mg/dL TSH (0.36-3.74) uIU/mL Ur THC Screen (Negative) 07/14/19 07/14/19 07/14/19 Range/Units 04:50 06:20 06:20 RBC 4.26 L (4.50-6.00) m/cumm Hgb 11.8 L (13.5-17.5) g/dL Hct 34.9 L (40.0-50.0) % RDW 15.7 H (11.8-14.1) % Absolute Lymphocytes 0.49 L (1.2-3.4) k/cumm D-Dimer (<500) ng/mlFEU Sodium 127 L (136-145) mmol/L Chloride 93 L (98-107) mmol/L Anion Gap (3-11) mmol/L BUN (7-18) mg/dL Creatinine 0.49 L (0.70-1.30) mg/dL Glucose 151 H D (74-106) mg/dL Magnesium 1.6 L (1.8-2.4) mg/dL TSH 0.32 L (0.36-3.74) uIU/mL Ur THC Screen Positive A (Negative) Vital Signs Temperature 36.6 C 07/14/19 10:22 Temperature Source Tympanic 07/14/19 10:22 Pulse 105 H 07/14/19 10:22 Pulse Rhythm Regular 07/14/19 10:11 Pulse 116 H 07/13/19 15:10 Respiratory Rate 20 07/14/19 10:22 Respiratory Effort Non-Labored 07/14/19 10:11 Respiratory Depth Normal 07/14/19 10:11 Respiratory Pattern Normal 07/14/19 10:11 Blood Pressure 128/83 07/14/19 10:22 Blood Pressure Mean 117 07/13/19 15:00 Blood Pressure Position Sitting 07/13/19 11:13 Pulse Oximetry 95 07/14/19 10:22 Oxygen Delivery Method Nasal Cannula 07/14/19 10:22 Oxygen Flow Rate 1 07/14/19 10:22 Fraction of Inspired Oxygen (FIO2) 30 07/13/19 13:11 Pain Level 0 07/14/19 10:22 Intake & Output 07/13/19 07/13/19 07/14/19 11:59 23:59 11:59 Intake Total 20 / 560 540 / 560 1000 / 1000 Output Total 1450 / 1450 400 / 400 Balance 20 / -890 -910 / -890 600 / 600 Weight 54.431 kg 54.431 kg 54.1 kg Intake: IV 20 / 320 300 / 320 1000 / 1000 Oral 240 / 240 Output: Urine 1450 / 1450 400 / 400 Other: Urine Color Yellow Light Cindy Urine Appearance Clear Clear Urine Odor None Voiding Methods Urinal Urinal Laboratory Results WBC 5.58 k/cumm (4.4-10.8) 07/14/19 06:20 RBC 4.26 m/cumm (4.50-6.00) L 07/14/19 06:20 Hgb 11.8 g/dL (13.5-17.5) L 07/14/19 06:20 Hct 34.9 % (40.0-50.0) L 07/14/19 06:20 MCV 81.9 fL (80-95) 07/14/19 06:20 MCH 27.7 pg (27.0-33.0) 07/14/19 06:20 MCHC 33.8 g/dL (32.0-36.0) 07/14/19 06:20 RDW 15.7 % (11.8-14.1) H 07/14/19 06:20 Plt Count 298 x1000/uL (130-400) 07/14/19 06:20 MPV 9.1 fL (8.0-11.0) 07/14/19 06:20 Immature Gran % 0.4 % 07/14/19 06:20 Neutrophils % 86.7 07/14/19 06:20 Lymphocytes % 8.8 07/14/19 06:20 Monocytes % 4.1 07/14/19 06:20 Eosinophils % 0.0 07/14/19 06:20 Basophils % 0.0 07/14/19 06:20 Absolute Neutrophils 4.84 k/cumm (1.2-6.7) 07/14/19 06:20 Absolute Lymphocytes 0.49 k/cumm (1.2-3.4) L 07/14/19 06:20 Absolute Monocytes 0.23 k/cumm (0.11-0.7) 07/14/19 06:20 Absolute Eosinophils 0.00 k/cumm (0.0-0.7) 07/14/19 06:20 Absolute Basophils 0.00 k/cumm (0.0-0.2) 07/14/19 06:20 D-Dimer 852 ng/mlFEU (<500) H 07/13/19 11:25 Sodium 127 mmol/L (136-145) L 07/14/19 06:20 Potassium 4.1 mmol/L (3.5-5.1) 07/14/19 06:20 Chloride 93 mmol/L (98-107) L 07/14/19 06:20 Carbon Dioxide 24.8 mmol/L (21.0-32.0) 07/14/19 06:20 Anion Gap 9.2 mmol/L (3-11) 07/14/19 06:20 BUN 14 mg/dL (7-18) D 07/14/19 06:20 Creatinine 0.49 mg/dL (0.70-1.30) L 07/14/19 06:20 Estimated GFR/1.73 m2 >= 60.00 (mL/min/1.73m2) 07/14/19 06:20 Glucose 151 mg/dL (74-106) H D 07/14/19 06:20 Calcium 8.5 mg/dL (8.5-10.1) 07/14/19 06:20 Phosphorus 3.4 mg/dL (2.6-4.7) 07/14/19 06:20 Magnesium 1.6 mg/dL (1.8-2.4) L 07/14/19 06:20 Total Bilirubin 0.4 mg/dL (0.2-1.0) 07/13/19 11:25 AST 33 U/L (15-37) 07/13/19 11:25 ALT 29 U/L (16-63) 07/13/19 11:25 Alkaline Phosphatase 89 U/L (46-116) 07/13/19 11:25 Lactate Dehydrogenase 151 U/L (85-227) 07/13/19 11:25 Troponin I < 0.05 ng/Ml (<0.06) 07/13/19 19:03 C-Reactive Protein < 0.05 mg/dL (0.0-0.3) 07/13/19 11:25 NT-Pro-B Natriuret Pep 78 pg/mL (<300) 07/13/19 11:25 Total Protein 6.9 g/dL (6.4-8.2) 07/13/19 11:25 Albumin 3.7 g/dL (3.4-5.0) 07/13/19 11:25 TSH 0.32 uIU/mL (0.36-3.74) L 07/14/19 06:20 Free T4 1.17 ng/dL (0.76-1.46) 07/14/19 06:20 Urine Opiates Screen Negative (Negative) 07/14/19 04:50 Urine Methadone Screen Negative (Negative) 07/14/19 04:50 Ur Barbiturates Screen Negative (Negative) 07/14/19 04:50 Ur Tricyclics Screen Negative (Negative) 07/14/19 04:50 Ur Amphetamines Screen Negative (Negative) 07/14/19 04:50 U Benzodiazepines Scrn Negative (Negative) 07/14/19 04:50 Urine Cocaine Screen Negative (Negative) 07/14/19 04:50 Ur THC Screen Positive (Negative) A 07/14/19 04:50 Ethyl Alcohol Cancelled 07/13/19 13:29 Reviewed Pertinent PMH: Yes Objective Narrative Objective Narrative: Telemetry reveals normal sinus rhythm at rate of 99 bpm
--- NOTE | 2019-07-14 12:43 | W.NUTCONSULT ---
Date of service: 07/14/19 Time of Service: 12:43 Nutritional Consult ASSESSMENT: 63 year old male with long history of alcoholism. Following Heart Healthy Diet with 50% intake. Has difficulty eating as with SOB secondary to COPD. PMH: HTN, Pulmonary Cachexia. Reports weight typical and drinks ensure at home. Estimated Needs: [id number] kcal, 54-70 g protein, 1620 ml fluid. Current intake with ensure BID will meet 100% nutrient needs. Will follow weight, lab and po intake trends and make warranted changes for optimal nutrient intake. NUTRITIONAL DIAGNOSIS: Pulmonary Cachexia INTERVENTION: Ensure plus BID MONITORING AND EVALUATION: weight, po intake, labs Time Spent in Nutritional Counseling and Treatment: 10 min spent face to face
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
[2019-07-14] MEDS: Tiotropium Bromide-Respimat 10 PUFF INH IH (14:27)
--- NOTE | 2019-07-14 15:38 | CHAPLAIN ---
Bonifacio was sitting in his chair. He seemed to be working to breath, more than normal. He said he's been better, been worse. I explained my role and offered support.
[2019-07-14] MEDS: Enoxaparin 40 MG/0.4 ML SYR SC (15:53)
[2019-07-14] MEDS: Docusate Sodium 100 MG CAP PO (16:03)
[2019-07-14] MEDS: Acetaminophen 325 MG TAB PO (17:59)
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
[2019-07-14] MEDS: Ibuprofen 600 MG TAB PO (19:46)
[2019-07-14] MEDS: Melatonin 3 MG TAB 6 MG PO (23:40)
[2019-07-15] VITALS (12 sets, daily range): BP systolic 110–167; BP diastolic 77–110; PULSE 93–116; RESP 16–22; TEMP 36.6–37.1; O2SAT 93–98
[2019-07-15] MEDS: Normal Saline Flush 10 ML SYR IVP ×2 (02:58→09:37)
[2019-07-15] MEDS: methylPREDNISolone SUCC 125 MG VIAL 60 MG IVP ×3 (02:58→18:16)
[2019-07-15 07:27] LABS: Anion Gap 8.5 mmol/L (3-11); BUN 19 mg/dL (7-18); CO2 28.5 mmol/L (21.0-32.0); CREATININE 0.51 mg/dL (0.70-1.30); Calcium 8.9 mg/dL (8.5-10.1); Chloride 94 mmol/L (98-107); Glucose 138 mg/dL (74-106); Magnesium 2.1 mg/dL (1.8-2.4); Potassium 3.8 mmol/L (3.5-5.1); Sodium 131 mmol/L (136-145)
[2019-07-15] MEDS: Tiotropium Bromide-Respimat 10 PUFF INH IH (08:03)
[2019-07-15] MEDS: Budesonide/Formoterol 160/4.5 6 GM 60 PUFF INH IH ×2 (08:03→20:41)
--- NOTE | 2019-07-15 09:08 | PT.INTREAT ---
Date of service: 07/15/19 Time of Service: 09:08 PT Notes Visit Reasons: COPD EXACERBATION Physical Therapy Inpatient Treatment Note Date: 07/14/2021 Precautions: Fall. Standard. Activity as tolerated. On continuous 2 L of oxygen per minute via NC. Subjective: Patient is agreeable to PT treatment. Patient expresses his frustration over an incontinent episode last night which he states resulted from excessive intake of a 'red protein drink' that was given to him. He states that he did not have any of this of the same episode this morning. He denies any chest pain, dizziness, and headache throughout PT session. Patient is happy about the ambulation distance that he was able to cover today without much difficulty and BUE tremors. General Observation: Telemetry monitoring in place. Is on room air as of this morning. No tremor seen at rest. Mildly short of breath after ambulation activity. Mental Status: Alert and oriented x4 Pain: None reported throughout Vital Signs: Oxygen saturation ranged from 84% to 97% on 1 L/min via NC after ambulation activity Bed Mobility/Transfers: Rolling SBA Supine to sit SBA with HOB 45 degrees using BUE for support while pulling on bed rails Sit to supine SBA with HOB 45 degrees using BUE for support while pulling on bed rails Sit to stand SBA using BUE for support with FWW Stand to sit SBA using BUE for support with FWW Bed to chair SBA using BUE for support with FWW Chair to bed SBA using BUE for support with FWW THERA EX: Patient tolerated seated edge of the bed exercises consisting of ankle dorsiflexion plantarflexion x10, long arc quads x10, and alternate leg raises x10 with good response. Patient also performed pursed lip breathing coordinated with chest expansion exercises with no complaint of pain or breathlessness. Gait: Patient tolerated level surface ambulation of 40 feet with CGA using front wheeled walker with FWB with minimal breathlessness on 1 L/min. Patient desaturated to 84% right after ambulation activity but was able to re-saturated back up to 97% on 1 L/min and stayed at 95% on room air at rest. Increasing joe. Step height and length remains decreased. Thoracic kyphosis is still evident. Assessment: Patient demonstrated much improved performance with bed mobility, transfers, and ambulation with no significant dyspnea observed. Patient was placed on room air as of this morning and was saturating within normal limits. Patient was placed on 1 L/min to ensure adequate oxygen saturation during ambulation activity. DISCHARGE RECOMMENDATIONS: Patient will benefit from senior care facility placement for continued skilled physical therapy services in order to progress mobility level, strength, and balance in preparation for a safe discharge to home. No equipment needs at this time. Unsure of how much physical assistance friend Ata will be able to provide for patient considering current mobility level. TREATMENT CODE/TIME: 21020 x 18 minutes, 9711 0 x 15 minutes beginning at 9:08 AM.
[2019-07-15] MEDS: Thiamine 100 MG TAB PO (09:38)
[2019-07-15] MEDS: Tamsulosin 0.4 MG CAPCR PO (09:38)
[2019-07-15] MEDS: Lisinopril 5 MG TAB 10 MG PO (09:38)
[2019-07-15] MEDS: Multivitamin TAB 1 TAB PO (09:39)
[2019-07-15] MEDS: Aspirin E.C. 81 MG TABEC PO (09:39)
[2019-07-15] MEDS: amLODIPine 5 MG TAB PO (09:39)
[2019-07-15] MEDS: Magnesium Gluconate 500 MG TAB PO ×2 (09:39→20:41)
[2019-07-15] MEDS: levoFLOXacin 500 MG, levoFLOXacin 250 MG 750 MG PO (09:39)
[2019-07-15] MEDS: Folic Acid 1 MG TAB PO (09:39)
[2019-07-15] MEDS: Benzonatate 200 MG CAP PO ×3 (09:39→20:41)
[2019-07-15] MEDS: Finasteride 5 MG TAB PO (09:39)
[2019-07-15] MEDS: Omeprazole 20 MG CAPCR PO (09:39)
[2019-07-15] MEDS: guaiFENesin 600 MG TABCR PO ×2 (09:39→20:40)
--- NOTE | 2019-07-15 10:50 | PGE_ITS ---
Date of Service Date of service: 07/15/19 Time of Service: 10:50 Assessment and Plan Assessment and plan (1) Chest pain: Status: Acute Assessment and plan: Unclear as to whether this is ischemic pain. He is showing no evidence of acute ischemic ST-T wave changes nor is or any evidence for an injury pattern. 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 Qualifiers: Chest pain type: unspecified Qualified Code(s): R07.9 - Chest pain, unspecified (2) COPD exacerbation: Status: Acute Assessment and plan: Will discontinue IV corticosteroids and transition him over to prednisone. Change his Xopenex from scheduled to PRN. (3) Pulmonary cachexia due to chronic obstructive pulmonary disease: Status: Acute Assessment and plan: High-protein supplements. Nutritional consult. In light of the severity of his COPD order to get a palliative care consult. Patient is made it clear that he does not want resuscitated in the event of cardiopulmonary arrest or respiratory failure. (4) Alcoholism: Status: Acute Assessment and plan: CIWA monitoring and program doses of Serax. PRN doses of Ativan per CIWA scores. However his CIWA scores have been quite low and I do not anticipate him going into acute DTs. (5) DVT prophylaxis: Status: Acute Assessment and plan: Enoxaparin for DVT prophylaxis. Subjective Subjective Interval history since last seen: Patient with sharp crushing substernal chest pain this morning. Says it woke him up from a sound sleep. BP 157/109 with a pulse of 109 bpm. Pulse oximetry 96% on room air. Stat EKG has been done patient is being given sublingual nitroglycerin. Will check a troponin level with repeat serial troponin levels later this afternoon. Objective Objective Clinical Data: Abnormal lab results 07/15/19 Range/Units 06:50 Sodium 131 L (136-145) mmol/L Chloride 94 L (98-107) mmol/L BUN 19 H (7-18) mg/dL Creatinine 0.51 L (0.70-1.30) mg/dL Glucose 138 H (74-106) mg/dL Vital Signs Temperature 37.1 C 07/15/19 10:05 Temperature Source Temporal Artery Scan 07/15/19 10:05 Pulse 93 H 07/15/19 10:05 Pulse Rhythm Regular 07/15/19 10:22 Pulse 116 H 07/13/19 15:10 Respiratory Rate 18 07/15/19 10:05 Respiratory Effort Accessory Muscle Use 07/15/19 10:22 Respiratory Depth Normal 07/15/19 10:22 Respiratory Pattern Irregular 07/15/19 10:22 Blood Pressure 136/97 H 07/15/19 10:05 Blood Pressure Mean 117 07/13/19 15:00 Blood Pressure Position Sitting 07/13/19 11:13 Pulse Oximetry 93 L 07/15/19 10:05 Oxygen Delivery Method Room Air 07/15/19 10:05 Oxygen Flow Rate 0 07/15/19 10:05 Fraction of Inspired Oxygen (FIO2) 30 07/13/19 13:11 Pain Level 6 07/15/19 10:05 Comment 07/15/19 07:21 Intake & Output 07/14/19 07/14/19 07/15/19 11:59 23:59 11:59 Intake Total 1610 / 2550 940 / 2550 1300 / 1300 Output Total 400 / 1500 1100 / 1500 1360 / 1360 Balance 1210 / 1050 -160 / 1050 -60 / -60 Weight 54.1 kg 54.1 kg Intake: IV 1000 / 1010 10 / 1010 Oral 610 / 1540 930 / 1540 1300 / 1300 Output: Urine 400 / 1500 1100 / 1500 1360 / 1360 Other: Urine Color Light Cindy Yellow Pale Urine Appearance Clear Clear Clear Urine Odor None None None Comment very dilute brought to the attention of the [facility] Voiding Methods Urinal Urinal Urinal Laboratory Results WBC 5.58 k/cumm (4.4-10.8) 07/14/19 06:20 RBC 4.26 m/cumm (4.50-6.00) L 07/14/19 06:20 Hgb 11.8 g/dL (13.5-17.5) L 07/14/19 06:20 Hct 34.9 % (40.0-50.0) L 07/14/19 06:20 MCV 81.9 fL (80-95) 07/14/19 06:20 MCH 27.7 pg (27.0-33.0) 07/14/19 06:20 MCHC 33.8 g/dL (32.0-36.0) 07/14/19 06:20 RDW 15.7 % (11.8-14.1) H 07/14/19 06:20 Plt Count 298 x1000/uL (130-400) 07/14/19 06:20 MPV 9.1 fL (8.0-11.0) 07/14/19 06:20 Immature Gran % 0.4 % 07/14/19 06:20 Neutrophils % 86.7 07/14/19 06:20 Lymphocytes % 8.8 07/14/19 06:20 Monocytes % 4.1 07/14/19 06:20 Eosinophils % 0.0 07/14/19 06:20 Basophils % 0.0 07/14/19 06:20 Absolute Neutrophils 4.84 k/cumm (1.2-6.7) 07/14/19 06:20 Absolute Lymphocytes 0.49 k/cumm (1.2-3.4) L 07/14/19 06:20 Absolute Monocytes 0.23 k/cumm (0.11-0.7) 07/14/19 06:20 Absolute Eosinophils 0.00 k/cumm (0.0-0.7) 07/14/19 06:20 Absolute Basophils 0.00 k/cumm (0.0-0.2) 07/14/19 06:20 D-Dimer 852 ng/mlFEU (<500) H 07/13/19 11:25 Sodium 131 mmol/L (136-145) L 07/15/19 06:50 Potassium 3.8 mmol/L (3.5-5.1) 07/15/19 06:50 Chloride 94 mmol/L (98-107) L 07/15/19 06:50 Carbon Dioxide 28.5 mmol/L (21.0-32.0) 07/15/19 06:50 Anion Gap 8.5 mmol/L (3-11) 07/15/19 06:50 BUN 19 mg/dL (7-18) H 07/15/19 06:50 Creatinine 0.51 mg/dL (0.70-1.30) L 07/15/19 06:50 Estimated GFR/1.73 m2 >= 60.00 (mL/min/1.73m2) 07/15/19 06:50 Glucose 138 mg/dL (74-106) H 07/15/19 06:50 Calcium 8.9 mg/dL (8.5-10.1) 07/15/19 06:50 Phosphorus 3.4 mg/dL (2.6-4.7) 07/14/19 06:20 Magnesium 2.1 mg/dL (1.8-2.4) 07/15/19 06:50 Total Bilirubin 0.4 mg/dL (0.2-1.0) 07/13/19 11:25 AST 33 U/L (15-37) 07/13/19 11:25 ALT 29 U/L (16-63) 07/13/19 11:25 Alkaline Phosphatase 89 U/L (46-116) 07/13/19 11:25 Lactate Dehydrogenase 151 U/L (85-227) 07/13/19 11:25 Troponin I < 0.05 ng/Ml (<0.06) 07/13/19 19:03 C-Reactive Protein < 0.05 mg/dL (0.0-0.3) 07/13/19 11:25 NT-Pro-B Natriuret Pep 78 pg/mL (<300) 07/13/19 11:25 Total Protein 6.9 g/dL (6.4-8.2) 07/13/19 11:25 Albumin 3.7 g/dL (3.4-5.0) 07/13/19 11:25 TSH 0.32 uIU/mL (0.36-3.74) L 07/14/19 06:20 Free T4 1.17 ng/dL (0.76-1.46) 07/14/19 06:20 Urine Opiates Screen Negative (Negative) 07/14/19 04:50 Urine Methadone Screen Negative (Negative) 07/14/19 04:50 Ur Barbiturates Screen Negative (Negative) 07/14/19 04:50 Ur Tricyclics Screen Negative (Negative) 07/14/19 04:50 Ur Amphetamines Screen Negative (Negative) 07/14/19 04:50 U Benzodiazepines Scrn Negative (Negative) 07/14/19 04:50 Urine Cocaine Screen Negative (Negative) 07/14/19 04:50 Ur THC Screen Positive (Negative) A 07/14/19 04:50 Ethyl Alcohol Cancelled 07/13/19 13:29 Reviewed Pertinent PMH: Yes Objective Narrative Objective Narrative: Stat EKG demonstrates sinus tachycardia rate of 112 bpm with an old anteroseptal infarct that is unchanged from prior ECGs. There is no acute ST elevation or depression.
[2019-07-15] MEDS: Metoprolol 5 MG/5 ML VIAL 2.5 MG IVP (11:18)
[2019-07-15] MEDS: MORPHine 2 MG/ML SYR IVP (11:18)
[2019-07-15 11:36] LABS: Troponin I < 0.05 ng/Ml (<0.06)
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
[2019-07-15] MEDS: Enoxaparin 40 MG/0.4 ML SYR SC (15:24)
--- NOTE | 2019-07-15 15:33 | PT.INNT ---
Date of service: 07/15/19 PT Notes Visit Reasons: COPD EXACERBATION Nurse Marcial updated this PT of patient complaining about having chest pain late morning today and that ECG was ordered but result showed no new changes. During this PT's visit for the afternoon session, patient appeared significantly fatigued and did not have the energy to even eat his lunch. He does not feel that he has any energy to participate in any kind of activity this afternoon. Will await result of further testing for serial troponin as ordered by MD before seeing patient for tomorrow's scheduled PT.
[2019-07-15 15:45] LABS: Troponin I < 0.05 ng/Ml (<0.06)
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
[2019-07-15 19:43] LABS: Troponin I < 0.05 ng/Ml (<0.06)
[2019-07-15] MEDS: Ibuprofen 600 MG TAB PO (19:43)
[2019-07-15] MEDS: Melatonin 3 MG TAB 6 MG PO (20:40)
[2019-07-15] MEDS: LORazepam 1 MG TAB PO (20:41)
[2019-07-15] MEDS: Acetaminophen 325 MG TAB PO (23:25)
[2019-07-16] VITALS (11 sets, daily range): BP systolic 127–156; BP diastolic 77–99; PULSE 76–139; RESP 16–28; TEMP 36.1–37.6; O2SAT 92–99
[2019-07-16] MEDS: methylPREDNISolone SUCC 125 MG VIAL 60 MG IVP ×2 (03:15→10:29)
[2019-07-16] MEDS: Acetaminophen 325 MG TAB PO ×2 (05:05→19:03)
[2019-07-16 07:45] LABS: Anion Gap 6.4 mmol/L (3-11); BUN 28 mg/dL (7-18); CO2 29.6 mmol/L (21.0-32.0); CREATININE 0.59 mg/dL (0.70-1.30); Calcium 8.6 mg/dL (8.5-10.1); Chloride 93 mmol/L (98-107); Glucose 148 mg/dL (74-106); Potassium 3.5 mmol/L (3.5-5.1); Sodium 129 mmol/L (136-145)
[2019-07-16] MEDS: Budesonide/Formoterol 160/4.5 6 GM 60 PUFF INH IH ×2 (07:59→20:48)
[2019-07-16] MEDS: Tiotropium Bromide-Respimat 10 PUFF INH IH (07:59)
[2019-07-16] MEDS: Folic Acid 1 MG TAB PO (09:04)
[2019-07-16] MEDS: dilTIAZem CD 120 MG CAPCR PO (09:04)
[2019-07-16] MEDS: Thiamine 100 MG TAB PO (09:04)
[2019-07-16] MEDS: Omeprazole 20 MG CAPCR PO (09:04)
[2019-07-16] MEDS: Multivitamin TAB 1 TAB PO (09:04)
[2019-07-16] MEDS: Aspirin E.C. 81 MG TABEC PO (09:04)
[2019-07-16] MEDS: Lisinopril 5 MG TAB 10 MG PO (09:04)
[2019-07-16] MEDS: Finasteride 5 MG TAB PO (09:04)
[2019-07-16] MEDS: amLODIPine 5 MG TAB PO (09:04)
[2019-07-16] MEDS: Tamsulosin 0.4 MG CAPCR PO (09:05)
[2019-07-16] MEDS: Benzonatate 200 MG CAP PO ×3 (09:05→20:48)
[2019-07-16] MEDS: Magnesium Gluconate 500 MG TAB PO ×2 (09:05→20:48)
[2019-07-16] MEDS: guaiFENesin 600 MG TABCR PO ×2 (09:05→20:48)
[2019-07-16] MEDS: levoFLOXacin 500 MG, levoFLOXacin 250 MG 750 MG PO (09:05)
[2019-07-16] MEDS: Normal Saline Flush 10 ML SYR IVP (10:29)
--- NOTE | 2019-07-16 10:53 | W.PM.PROGNOT ---
Date of Service Date of service: 07/16/19 Time of Service: 10:53 Assessment and Plan Assessment and plan (1) COPD exacerbation: Status: Acute Assessment and plan: DC Solu-Medrol and start prednisone. Continue PRN Xopenex and daily dose of Spiriva. Continue oral Levaquin for total 7 days. Check ambulatory pulse oximetry and plan for discharge in the next 24 to 48 hours. (2) Chest pain: Status: Acute Assessment and plan: Unclear whether or not his episode yesterday was ischemic pain. He had no evidence of an infarction as he had 3- troponin levels and no acute EKG changes. His EKG shows an old anteroseptal infarct. He states he was diagnosed this in the 1980s and this was diagnosed retrospectively based on EKGs. He never had a cardiac catheterization although he believes he had a stress test in the remote past. I will check an echocardiogram in the morning to get a baseline of his LV and RV function. We will start him on Imdur and diltiazem CD. He will continue on aspirin 81 mg daily and I will start him on a statin. Qualifiers: Chest pain type: unspecified Qualified Code(s): R07.9 - Chest pain, unspecified (3) Pulmonary cachexia due to chronic obstructive pulmonary disease: Status: Acute Assessment and plan: Continue high-protein supplements (4) Alcoholism: Status: Acute Assessment and plan: CIWA monitoring and program doses of Serax. PRN doses of Ativan per CIWA scores. However his CIWA scores have been quite low and I do not anticipate him going into acute DTs. (5) DVT prophylaxis: Status: Acute Assessment and plan: Enoxaparin for DVT prophylaxis. (6) Discharge planning issues: Status: Acute Assessment and plan: Patient would prefer to return home where he lives in a farm house with his roommate and their dog. care coordination manager met with him yesterday to discuss discharge plans including a palliative care consult. Dr. Hair will meet with him on Wednesday if he still hospitalized otherwise she can follow-up with palliative care as an outpatient. Care managers can work on try to get some additional support in the home. Subjective Subjective Interval history since last seen: No further episodes of chest pain or chest pressure. His dyspnea has improved. His oxygen saturation is improved to use at 95% on room air. I told him that we would get an ambulatory pulse oximetry in the morning and possibly discharged him tomorrow if he has no further episodes of chest pain. I am switching his amlodipine to diltiazem CD for both blood pressure as well as heart rate control. Again add Imdur for anti-ischemic effect. I told him when he is discharged we will send him home with a prescription for nitroglycerin. I will get an echocardiogram in the morning to evaluate his LV function. All of his troponin levels were negative yesterday. He is upset this morning as he got news that his cat was killed yesterday under uncertain circumstances. Exam Narrative Exam Narrative: Middle-age male who appears to be older than his stated age. He appears to be very frail. He is alert and oriented person place time and circumstance. He sitting up on the side of his bed. He is able to carry full conversations without getting winded. He has his nasal cannula on however there is no oxygen flow to the nasal cannula. Lungs reveal prolonged expiratory phase with improved aeration to his lung bases. He has a few scattered expiratory wheezes Heart is regular rate and rhythm to slightly tachycardic without murmur rub or gallop. Abdomen scaphoid. Extremities without cyanosis or edema. Objective Objective Clinical Data: Abnormal lab results 07/16/19 Range/Units 06:35 Sodium 129 L (136-145) mmol/L Chloride 93 L (98-107) mmol/L BUN 28 H D (7-18) mg/dL Creatinine 0.59 L (0.70-1.30) mg/dL Glucose 148 H (74-106) mg/dL Vital Signs Temperature 36.6 C 07/16/19 08:00 Temperature Source Temporal Artery Scan 07/16/19 08:00 Pulse 83 07/16/19 08:00 Pulse Rhythm Regular 07/16/19 10:46 Pulse 116 H 07/13/19 15:10 Respiratory Rate 22 07/16/19 08:00 Respiratory Effort 07/16/19 10:46 Respiratory Depth Normal 07/16/19 10:46 Respiratory Pattern Normal 07/16/19 10:46 Blood Pressure 143/88 H 07/16/19 08:00 Blood Pressure Mean 117 07/13/19 15:00 Blood Pressure Position Sitting 07/13/19 11:13 Pulse Oximetry 95 07/16/19 08:03 Oxygen Delivery Method Room Air 07/16/19 08:03 Oxygen Flow Rate 0 07/16/19 08:03 Fraction of Inspired Oxygen (FIO2) 30 07/13/19 13:11 Pain Level 0 07/16/19 08:00 Comment 07/16/19 08:00 Intake & Output 07/15/19 07/15/19 07/16/19 11:59 23:59 11:59 Intake Total 1300 / 2120 820 / 2120 Output Total 1760 / 2610 850 / 2610 705 / 705 Balance -460 / -490 -30 / -490 -695 / -695 Weight 54.1 kg Intake: IV Oral 1300 / 2120 820 / 2120 Output: Urine 1760 / 2610 850 / 2610 705 / 705 Other: Urine Color Light Cindy Yellow Yellow Urine Appearance Cloudy Clear Clear Urine Odor None None Comment very dilute brought to the attention of the [facility] Voiding Methods Urinal Urinal Urinal Laboratory Results WBC 5.58 k/cumm (4.4-10.8) 07/14/19 06:20 RBC 4.26 m/cumm (4.50-6.00) L 07/14/19 06:20 Hgb 11.8 g/dL (13.5-17.5) L 07/14/19 06:20 Hct 34.9 % (40.0-50.0) L 07/14/19 06:20 MCV 81.9 fL (80-95) 07/14/19 06:20 MCH 27.7 pg (27.0-33.0) 07/14/19 06:20 MCHC 33.8 g/dL (32.0-36.0) 07/14/19 06:20 RDW 15.7 % (11.8-14.1) H 07/14/19 06:20 Plt Count 298 x1000/uL (130-400) 07/14/19 06:20 MPV 9.1 fL (8.0-11.0) 07/14/19 06:20 Immature Gran % 0.4 % 07/14/19 06:20 Neutrophils % 86.7 07/14/19 06:20 Lymphocytes % 8.8 07/14/19 06:20 Monocytes % 4.1 07/14/19 06:20 Eosinophils % 0.0 07/14/19 06:20 Basophils % 0.0 07/14/19 06:20 Absolute Neutrophils 4.84 k/cumm (1.2-6.7) 07/14/19 06:20 Absolute Lymphocytes 0.49 k/cumm (1.2-3.4) L 07/14/19 06:20 Absolute Monocytes 0.23 k/cumm (0.11-0.7) 07/14/19 06:20 Absolute Eosinophils 0.00 k/cumm (0.0-0.7) 07/14/19 06:20 Absolute Basophils 0.00 k/cumm (0.0-0.2) 07/14/19 06:20 D-Dimer 852 ng/mlFEU (<500) H 07/13/19 11:25 Sodium 129 mmol/L (136-145) L 07/16/19 06:35 Potassium 3.5 mmol/L (3.5-5.1) 07/16/19 06:35 Chloride 93 mmol/L (98-107) L 07/16/19 06:35 Carbon Dioxide 29.6 mmol/L (21.0-32.0) 07/16/19 06:35 Anion Gap 6.4 mmol/L (3-11) 07/16/19 06:35 BUN 28 mg/dL (7-18) H D 07/16/19 06:35 Creatinine 0.59 mg/dL (0.70-1.30) L 07/16/19 06:35 Estimated GFR/1.73 m2 >= 60.00 (mL/min/1.73m2) 07/16/19 06:35 Glucose 148 mg/dL (74-106) H 07/16/19 06:35 Calcium 8.6 mg/dL (8.5-10.1) 07/16/19 06:35 Phosphorus 3.4 mg/dL (2.6-4.7) 07/14/19 06:20 Magnesium 2.1 mg/dL (1.8-2.4) 07/15/19 06:50 Total Bilirubin 0.4 mg/dL (0.2-1.0) 07/13/19 11:25 AST 33 U/L (15-37) 07/13/19 11:25 ALT 29 U/L (16-63) 07/13/19 11:25 Alkaline Phosphatase 89 U/L (46-116) 07/13/19 11:25 Lactate Dehydrogenase 151 U/L (85-227) 07/13/19 11:25 Troponin I < 0.05 ng/Ml (<0.06) 07/15/19 19:15 C-Reactive Protein < 0.05 mg/dL (0.0-0.3) 07/13/19 11:25 NT-Pro-B Natriuret Pep 78 pg/mL (<300) 07/13/19 11:25 Total Protein 6.9 g/dL (6.4-8.2) 07/13/19 11:25 Albumin 3.7 g/dL (3.4-5.0) 07/13/19 11:25 TSH 0.32 uIU/mL (0.36-3.74) L 07/14/19 06:20 Free T4 1.17 ng/dL (0.76-1.46) 07/14/19 06:20 Urine Opiates Screen Negative (Negative) 07/14/19 04:50 Urine Methadone Screen Negative (Negative) 07/14/19 04:50 Ur Barbiturates Screen Negative (Negative) 07/14/19 04:50 Ur Tricyclics Screen Negative (Negative) 07/14/19 04:50 Ur Amphetamines Screen Negative (Negative) 07/14/19 04:50 U Benzodiazepines Scrn Negative (Negative) 07/14/19 04:50 Urine Cocaine Screen Negative (Negative) 07/14/19 04:50 Ur THC Screen Positive (Negative) A 07/14/19 04:50 Ethyl Alcohol Cancelled 07/13/19 13:29
[2019-07-16] MEDS: Isosorbide Mononitrate 30 MG TABCR PO (12:08)
--- NOTE | 2019-07-16 12:08 | CMPROGNOTE_ITS ---
- If Service Date Differs Date of service: 07/16/19 Time of Service: 12:08 Care Management Progress Note S/O: Bonifacio was sitting up in bed when CM met with him. He stated that he was feeling better today. CM discussed discharge planning options with Paulino, who stated very adamantly that he does not want to go to a rehab facility. He stated that he 'would like to go home and '. He also stated that he does not believe that [facility] would pay for any additional [facility]. He re ported that his roommate, Ata, is not currently working and is very supportive. He would be providing his care at home. Dr. Hair will meet with him on Wednesday, either in patient vs home visit. CM will coordinate HH services in the home to provide additional support with RN (wound care), PT, FRONT END MANAGER. CM will continue to follow. A: Bonifacio is a 63 year old male admitted to [facility] for COPD exacerbation. P: Anticipate Bonifacio will return home when medically cleared. Palliative Care will meet with him on Wednesday (Dr. Hair) to discuss goals of care. He will need new orders for HH RN, PT, FRONT END MANAGER. Anticipate his friend, Ata, will drive him home via private vehicle. CM will continue to follow and support discharge planning considerations.
--- NOTE | 2019-07-16 12:50 | PT.INTREAT ---
Date of service: 07/16/19 Time of Service: 12:50 PT Notes Visit Reasons: COPD EXACERBATION Physical Therapy Inpatient Treatment Note Date: 07/15/2021 Precautions: Fall. Standard. Activity as tolerated. Subjective: Patient continues to complain of fatigue from yesterday's incident. He he did agree on being seen later this morning but turned out to be unavailable and requested to be seen right after lunch instead. He is a little concerned that the oxygen is being pulled too early off of him as he still struggles with exercise performance on room air. General Observation: Telemetry monitoring in place. No tremor seen at rest. Mental Status: Alert and oriented x4 Pain: None reported throughout Bed Mobility/Transfers: Rolling supervision Supine to sit supervision with HOB 45 degrees using BUE for support while pulling on bed rails Sit to supine supervision with HOB 45 degrees using BUE for support while pulling on bed rails Sit to stand supervision using BUE for support with FWW Stand to sit supervision using BUE for support with FWW Bed to chair supervision using BUE for support with FWW Chair to bed supervision using BUE for support with FWW THERA EX: Patient tolerated seated edge of the bed exercises consisting of ankle dorsiflexion/plantarflexion x15, long arc quads x15, and alternate leg raises x15, seated hip abduction/adduction x 15, heel raises x 15, and partial knee bends x 15 with good response. Gait: Patient tolerated level surface ambulation of 20 feet x 2 with CGA using front wheeled walker with FWB with minimal breathlessness on room air. Patient desaturated to 88% right after ambulation activity but was able to re-saturated back up to 94% on on room air after resting 1-2 minutes. Increasing joe. Step height and length remains decreased. Thoracic kyphosis is still evident. Assessment: Patient is on room air as of 07/15/2019 with oxygen supplementation discontinued by RT. However, activity tolerance remains limited and patient anxiety increases with mobility ADL performance due to breathlessness . Patient continues to require stand by assist for all mobility ADL performance for safety. This afternoon, oxygen saturation went down to 88% with seated level exercises with resaturation back to 94% after resting of 1-2 minutes. DISCHARGE RECOMMENDATIONS: Patient will benefit from a short rehab stay or from home health PT depending on how much his friend Ata is able to help at home. Patient will benefit from a bedside commode should he need to conserve energy and reduce fal risk. TREATMENT CODE/TIME: 50894 x 25 minutes, 36593 x 17 minutes beginning at 12:50 PM.
[2019-07-16] MEDS: predniSONE 20 MG TAB 60 MG PO (16:48)
[2019-07-16] MEDS: Enoxaparin 40 MG/0.4 ML SYR SC (16:48)
[2019-07-16] MEDS: Ibuprofen 600 MG TAB PO (18:10)
[2019-07-16] MEDS: Melatonin 3 MG TAB 6 MG PO (20:47)
[2019-07-16] MEDS: Atorvastatin 40 MG TAB PO (20:48)
[2019-07-17] VITALS (17 sets, daily range): BP systolic 108–177; BP diastolic 30–99; PULSE 84–127; RESP 2–24; TEMP 36.1–36.8; O2SAT 93–98
[2019-07-17] MEDS: Ibuprofen 600 MG TAB PO ×2 (01:31→21:36)
[2019-07-17] MEDS: Normal Saline Flush 10 ML SYR IVP ×3 (06:12→18:54)
[2019-07-17] MEDS: Acetaminophen 325 MG TAB PO ×2 (06:16→21:35)
[2019-07-17 06:44] LABS: Anion Gap 7.2 mmol/L (3-11); BUN 26 mg/dL (7-18); CO2 28.8 mmol/L (21.0-32.0); CREATININE 0.61 mg/dL (0.70-1.30); Calcium 8.6 mg/dL (8.5-10.1); Chloride 93 mmol/L (98-107); Glucose 121 mg/dL (74-106); Potassium 3.2 mmol/L (3.5-5.1); Sodium 129 mmol/L (136-145)
[2019-07-17 07:03] LABS: Calculated LDL 82 mg/dL (<100); Cholesterol 187 mg/dL (<200); HDL Cholesterol 83 mg/dL (40-60); Triglyceride 112 mg/dL (<150)
[2019-07-17] MEDS: predniSONE 20 MG TAB 60 MG PO (08:06)
[2019-07-17] MEDS: Folic Acid 1 MG TAB PO (08:06)
[2019-07-17] MEDS: Benzonatate 200 MG CAP PO ×3 (08:08→20:20)
[2019-07-17] MEDS: Magnesium Gluconate 500 MG TAB PO ×2 (08:08→20:20)
[2019-07-17] MEDS: guaiFENesin 600 MG TABCR PO ×2 (08:08→20:20)
[2019-07-17] MEDS: Omeprazole 20 MG CAPCR PO (08:08)
--- NOTE | 2019-07-17 08:08 | DI.US_ITS ---
APPROVED REPORT EXAM: Comprehensive 2D, Doppler, and color-flow Echocardiogram Patient Location: In-Patient Room/Bed: 225A Helmet Coverer: Yandy Jhaveri RDCS (AE) Indications: Chest Pain Other Information Study Quality: Technically Difficult. Technically limited study due to inability to position patient. Conclusion This is a technically challenging study. Left Ventricle : The left ventricle is normal size. The overall left ventricular systolic function ap pears normal. There is normal left ventricular wall thickness. There is normal LV segmental wall brandon on. Diastolic function is indeterminate. LVEF is 50-55%. Right Ventricle : The right ventricle is normal size. Right ventricular systolic function is grossly normal. Atria : The left atrium size is normal. The right atrium size is normal. Valves: There are no hemodynamically significant valvular lesions. Great Vessels : The IVC was not well visualized. There is no prior echocardiogram available for comparison. Wall motion Left Ventricle The left ventricle is normal size. The overall left ventricular systolic function appears normal. The re is normal left ventricular wall thickness. There is normal LV segmental wall motion. Diastolic fun ction is indeterminate. There is no ventricular septal defect visualized. LVEF is 50-55%. Right Ventricle The right ventricle is normal size. Right ventricular systolic function is grossly normal. Atria The left atrium size is normal. The right atrium size is normal. The interatrial septum is intact wit h no evidence for an atrial septal defect. Aortic Valve Aortic valve is trileaflet. There is no aortic valvular stenosis. No aortic regurgitation is present. Mitral Valve The mitral valve is normal in structure. No evidence of mitral valve stenosis. Trace mitral regurgita tion. Tricuspid Valve The tricuspid valve is normal in structure. There is no tricuspid valve stenosis. Trace tricuspid reg urgitation. Unable to assess PA pressure. Pulmonic Valve The pulmonary valve is normal in structure. There is no pulmonic valvular stenosis. There is no pulmo barrington valvular regurgitation. Great Vessels The aortic root is normal in size. Ascending aorta is not well visualized. Aortic arch is not well vi sualized. The IVC was not visualized. Pericardium There is no pericardial effusion. 2D Dimensions IVSD d PLAX 0.76 cm M: 0.6-1.2 LVPW d PLAX 0.77 cm M: 0.6 - 1.2 LVID d PLAX 4.24 cm M: 4.2 - 5.8 LVDs 3.00 cm M: 2.5 - 4.0 Ao Root d 3.33 cm M: 3.1 - 3.7 LV EF Dioniichholz 56.1 % FS 29.00 % LV Diastology MV E' lateral 0.064 (>0.1 m/s) E/A Ratio 0.5 LV E/e LAT 5.05 (<14) MV E Vmax 0.32 (0.4-1.3 m/s) MV E/E' lateral 5.08 MV A Vmax 0.65 (0.4-1.3 m/s) MV E/A Ratio 0.49 Aortic Valve LVOT Area 3.03 cm2 AoV Area Vmax 2.30 cm2 LVOT Vmax 0.84 m/s AoV Area/ BSA (Vmax) 1.50 cm2/m2 LVOT Mean Bruce. 0.69 m/s NICOLA Mean Bruce. 2.78 cm2 LVOT Peak Grad 2.8 mmHg NICOLA Mean Bruce. Index 1.81 cm2/m2 LVOT Mean Grad 2.0 mmHg LVOT VTI 0.181 m LVOT Diam s 1.95 cm (M/F) 1.5-2.5 AoV Vmax 1.10 (0.5-1.3 m/s) Velocity Ratio 0.76 AoV Mean Bruce. 0.76 m/s AoV Peak Grad 4.9 mmHg LVOT SV 55.06 mL AoV Mean Grad 2.7 (<5 mmHg) AoV VTI 0.173 (0.18-0.25 m) AoV Area VTI 3.17 (2.5-4.5 cm2) AoV Area/ BSA (VTI) 2.07 cm/m2 Mitral Valve MV DT 240 (160-240 msec) MV PHT 70 msec MV Area PHT 3.16 cm2 Pulmonary Valve PV Vmax 0.75 (0.5-1.5 m/s) RVOT Peak Gr. 0.77 mmHg PV Peak Grad 2.2 mmHg RVOT Mean Gr. 0.45 mmHg PV Mean Grad 1.3 mmHg RVOT VTI 0.084 m PV VTI 0.134 m RVOT Vmax 0.44 m/s
[2019-07-17] MEDS: Aspirin E.C. 81 MG TABEC PO (08:09)
[2019-07-17] MEDS: levoFLOXacin 500 MG, levoFLOXacin 250 MG 750 MG PO (08:09)
[2019-07-17] MEDS: Multivitamin TAB 1 TAB PO (08:09)
[2019-07-17] MEDS: Tamsulosin 0.4 MG CAPCR PO (08:11)
[2019-07-17] MEDS: Isosorbide Mononitrate 30 MG TABCR PO (08:12)
[2019-07-17] MEDS: Thiamine 100 MG TAB PO (08:12)
[2019-07-17] MEDS: Finasteride 5 MG TAB PO (08:12)
[2019-07-17] MEDS: Tiotropium Bromide-Respimat 10 PUFF INH IH (08:18)
[2019-07-17] MEDS: Nicotine 21 MG/24 HR PATCH TD (08:34)
[2019-07-17] MEDS: dilTIAZem CD 120 MG CAPCR 240 MG PO (08:35)
[2019-07-17] MEDS: Budesonide/Formoterol 160/4.5 6 GM 60 PUFF INH IH ×2 (09:10→20:22)
--- NOTE | 2019-07-17 09:14 | NUR.NOTE ---
Pt was extremely upset when this RN went in his room to do assessments. He stated he can not live like this any longer and wants to . He has refused services such as Occupational therapy and request to speak to manager protein and Doctor Ready. He did however take his meds.Charge Nurse aware.
--- NOTE | 2019-07-17 09:19 | OT.INNT ---
Date of service: 07/17/19 Time of Service: 09:05 Occupational Therapy Notes 07/17/19 OT consult received and pt's chart was reviewed. Pt states very abruptly upon OT arrival that he is not interested in any rehabilitative services at this time. He reports that he would like to go on hospice and he would like to . OT and pt did discuss if there was anything that he felt that he might need at home in terms of adaptive equipment and pt reported that, I haven't slept in over 36 hours and I'm starting to feel psychotic. OT did discuss this with RN who reports that she is aware and pt did verbalize to her that he does not want services at this time. OT will hold on OT consult per pts wishes at this time. Becki Correa, OTKendy/[facility]
--- NOTE | 2019-07-17 09:48 | NUR.NOTE ---
Patient is refusing care today, stated he wasn't doing anything today and wanted to be left alone today he doesn't feel well today.
--- NOTE | 2019-07-17 11:06 | NT_ITS ---
Date of service: 07/17/19 Time of Service: 11:06 PT Notes Visit Reasons: COPD EXACERBATION With update from OT Becki about patient's refusal to receive continued therapy services, this PT touched base with nurse for any official word from care management about patient's situation. Nurse elaborated that patient did express his wish of not receiving any PT/OT services. locker room manager Arin was then consulted about said situation, she did clarify that there is a scheduled hospice/palliative care consult to look at the direction of patient's overall goals. Finally, patient was seen in order to attempt to identify any further needs he may have that PT can potentially address. Bonifacio stated that he does not see the point of continuing PT services as he has decided to opt for hospice care. Will plan on discontinuing skilled PT services once an official level of care is established by palliative MD and or residential care facility manager.
[2019-07-17] MEDS: Polyethylene Glycol 3350 17 GM PACKET PO (12:03)
--- NOTE | 2019-07-17 13:14 | TELEFU_ITS ---
Date of service: 07/17/19 Time of Service: 13:14 Nutritional Follow up NOTE: Bonifacio is no longer meeting nutrient needs. 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 Met with Bonifacio today and explained benefits of proheal and meeting nutrient needs in view of wound healing and sparing lean body mass. He said he does not want the proheal and wants to go home. Encouraged him to increase intake as nutrient needs increased for optimal wound healing. Would recommend trial of proheal and monitor for acceptance. At high nutrient risk as with poor intake, increased nutrient needs and at risk for f urther functional decline if not meeting nutrient needs. Time Spent in Nutritional Counseling and Treatment: 10 min spent face to face
[2019-07-17] MEDS: Metoprolol 5 MG/5 ML VIAL 2.5 MG IVP (13:18)
--- NOTE | 2019-07-17 14:21 | CMPROGNOTE_ITS ---
- If Service Date Differs Date of service: 07/17/19 Time of Service: 14:21 Care Management Progress Note S/O: Paulino was sitting up in bed when CM met with him early in the day. He stated that he just can't do this anymore. He stated that he has no quality of life and has nothing to look forward to. He said his breathing is difficult and that he is in a lot of pain. He shared that he broke his right hip 5 years ago and took morphine for 2 months then got himself off of it. Paulino said he broke his right leg a few months ago and is still having pain but his doctor wont give him pain medicine because of his history. In addition, he asserts that he has not been able to sleep in days. Paulino talked about his goals for care and is looking forward to meeting with Dr. Hair tomorrow. He voiced an interest ion both palliative care and hospice. He stated he would really like to go home to , but his roomate Ata does not want him to at home. Paulino received 5mg of morphine late this morning and by early afternoon shared that he is feeling much better. A: Bonifacio is a 63 year old male admitted to [facility] for COPD exacerbation. P: Anticipate Bonifacio will return home when medically cleared. Palliative Care will meet with him on Wednesday (Dr. Hair) to discuss goals of care. He will need new orders for HH RN, PT, [employer]. Anticipate his friend, Ata, will drive him home via private vehicle. CM will continue to follow and support discharge planning considerati
[2019-07-17] MEDS: Levalbuterol 1.25 MG/3 ML UPD VIAL UPD (14:59)
[2019-07-17] MEDS: Ipratropium 0.5 MG/2.5 ML UPD VIAL UPD (15:32)
--- NOTE | 2019-07-17 15:43 | W.PM.PROGNOT ---
Date of Service Date of service: 07/17/19 Time of Service: 15:44 Assessment and Plan Assessment and plan (1) COPD exacerbation: Start date: 07/17/19 Start time: 15:49 Status: Acute Assessment and plan: Continue PRN Xopenex and daily dose of Spiriva, increased dyspnea with RA 98%, start low dose oral morphine and ativan for dyspnea. Wheezing to bll, updraft prn He is also frustrated and stating he wants to end his life. He is not SI but wants hospice. A big component likely contributing is pain and dyspnea, he is frustrated he can't breath. I am hoping by starting low dose morphine and ativan this may give him some relief and ease his frustration somewhat. Palliative care to see him tomorrow. Continue oral Levaquin for total 7 days. (2) Chest pain: Start date: 07/17/19 Start time: 15:54 Status: Acute Assessment and plan: CP continues to be the same. He did say low dose morphine helped relieve some CP. Will offer prn for both dyspnea and CP. He has been tachy today as high as 130-140's sustained. Metoprolol 2.5mg IVP q 6 hours for HR in addition to diltizem and indur, consider pain a contributing factor as well. Continue to monitor on telemetry. Qualifiers: Chest pain type: unspecified Qualified Code(s): R07.9 - Chest pain, unspecified (3) Pulmonary cachexia due to chronic obstructive pulmonary disease: Start date: 07/17/19 Start time: 15:57 Status: Acute Assessment and plan: Continue high-protein supplements (4) Alcoholism: Start date: 07/17/19 Start time: 15:57 Status: Acute Assessment and plan: He has not scored higher than 6 on CIWA, he is without withdrawal symptoms d/c CIWA. (5) DVT prophylaxis: Start date: 07/17/19 Start time: 16:05 Status: Acute Assessment and plan: Enoxaparin for DVT prophylaxis. (6) Insomnia: Start date: 07/17/19 Start time: 16:04 Status: Acute Assessment and plan: Frustrated as he has not been sleeping, will order benadryl for sleep and hs ativan prn for breathing. (7) End of life care: Start date: 07/17/19 Start time: 16:06 Status: Acute Assessment and plan: Expresses that he wants to end his life. He wants to go home on hospice. Dr. Hair to see patient tomorrow and have discussion with him regarding goals of care. (8) Dry mouth: Start date: 07/17/19 Start time: 16:07 Status: Acute Assessment and plan: Expresses having a dry mouth despite drinking fluids judiciously. Biotene PO ordered. (9) Discharge planning issues: Start date: 07/17/19 Start time: 16:12 Status: Acute Assessment and plan: Patient would prefer to return home where he lives in a farm house with his roommate and their dog. He is stating today to CM and nursing, myself as well he wants to go home on hospice. He is frustrated. Palliative to see him tomorrow. above case discussed with Dr. Ramírez who is in agreement. Subjective Subjective Patient reports: still having pain and shortness of breath Interval history since last seen: Mr. Blair is frustrated, he feels ready for his life to end. He would like to go home and . He is not suicidal he is tired. Morphine PO ordered for dyspnea and pain, ativan ordered for dyspnea, lidoderm ordered for CP. Spoke with in length about plan, he also feels that he is not sleeping, which is attributing to his feelings. At this time, it appears pain and SOB are large contributors to his feelings. He would also like something for dry mouth. I explained to him I would like to address his concerns which could possibly make him feel better overall and he is agreeable. He denies nvd. Exam Narrative Exam Narrative: Middle-age male who appears to be older than his stated age. He appears to be very frail. He is alert and oriented person place time and circumstance. He laying in bed with HOB at 45degrees. He is able to carry full conversations but appears SOB after a couple of sentences. 98% on RA Lungs reveal prolonged expiratory phase with improved aeration to his lung bases, expiratory wheezing bilaterally. Heart is regular rate and rhythm to slightly tachycardic without murmur rub or gallop. Abdomen scaphoid. Extremities without cyanosis or edema. Objective Objective Clinical Data: Abnormal lab results 07/17/19 Range/Units 06:10 Sodium 129 L (136-145) mmol/L Potassium 3.2 L (3.5-5.1) mmol/L Chloride 93 L (98-107) mmol/L BUN 26 H (7-18) mg/dL Creatinine 0.61 L (0.70-1.30) mg/dL Glucose 121 H (74-106) mg/dL Vital Signs Temperature 36.7 C 07/17/19 11:23 Temperature Source Tympanic 07/17/19 11:23 Pulse 110 H 07/17/19 15:42 Pulse Rhythm Regular 07/17/19 14:50 Pulse 116 H 07/13/19 15:10 Respiratory Rate 20 07/17/19 15:42 Respiratory Effort 07/17/19 14:50 Respiratory Depth Deep 07/17/19 14:50 Respiratory Pattern Irregular 07/17/19 14:50 Blood Pressure 111/80 07/17/19 13:25 Blood Pressure Mean 117 07/13/19 15:00 Blood Pressure Position Sitting 07/13/19 11:13 Pulse Oximetry 98 07/17/19 15:42 Oxygen Delivery Method Room Air 07/17/19 15:32 Oxygen Flow Rate 0 07/17/19 15:32 Fraction of Inspired Oxygen (FIO2) 30 07/13/19 13:11 Pain Level 7 07/17/19 11:50 Comment 07/16/19 19:00 Intake & Output 07/16/19 07/17/19 07/17/19 23:59 11:59 23:59 Intake Total 480 / 740 470 / 710 240 / 710 Output Total 400 / 1105 500 / 500 Balance 80 / -365 -30 / 210 240 / 210 Weight 55.5 kg Intake: IV Oral 480 / 730 450 / 690 240 / 690 Output: Urine 400 / 1105 500 / 500 Other: Urine Color Yellow Yellow Urine Appearance Clear Clear Clear Urine Odor None None Comment unmeasured void in toilet Voiding Methods Urinal Urinal Laboratory Results WBC 5.58 k/cumm (4.4-10.8) 07/14/19 06:20 RBC 4.26 m/cumm (4.50-6.00) L 07/14/19 06:20 Hgb 11.8 g/dL (13.5-17.5) L 07/14/19 06:20 Hct 34.9 % (40.0-50.0) L 07/14/19 06:20 MCV 81.9 fL (80-95) 07/14/19 06:20 MCH 27.7 pg (27.0-33.0) 07/14/19 06:20 MCHC 33.8 g/dL (32.0-36.0) 07/14/19 06:20 RDW 15.7 % (11.8-14.1) H 07/14/19 06:20 Plt Count 298 x1000/uL (130-400) 07/14/19 06:20 MPV 9.1 fL (8.0-11.0) 07/14/19 06:20 Immature Gran % 0.4 % 07/14/19 06:20 Neutrophils % 86.7 07/14/19 06:20 Lymphocytes % 8.8 07/14/19 06:20 Monocytes % 4.1 07/14/19 06:20 Eosinophils % 0.0 07/14/19 06:20 Basophils % 0.0 07/14/19 06:20 Absolute Neutrophils 4.84 k/cumm (1.2-6.7) 07/14/19 06:20 Absolute Lymphocytes 0.49 k/cumm (1.2-3.4) L 07/14/19 06:20 Absolute Monocytes 0.23 k/cumm (0.11-0.7) 07/14/19 06:20 Absolute Eosinophils 0.00 k/cumm (0.0-0.7) 07/14/19 06:20 Absolute Basophils 0.00 k/cumm (0.0-0.2) 07/14/19 06:20 D-Dimer 852 ng/mlFEU (<500) H 07/13/19 11:25 Sodium 129 mmol/L (136-145) L 07/17/19 06:10 Potassium 3.2 mmol/L (3.5-5.1) L 07/17/19 06:10 Chloride 93 mmol/L (98-107) L 07/17/19 06:10 Carbon Dioxide 28.8 mmol/L (21.0-32.0) 07/17/19 06:10 Anion Gap 7.2 mmol/L (3-11) 07/17/19 06:10 BUN 26 mg/dL (7-18) H 07/17/19 06:10 Creatinine 0.61 mg/dL (0.70-1.30) L 07/17/19 06:10 Estimated GFR/1.73 m2 >= 60.00 (mL/min/1.73m2) 07/17/19 06:10 Glucose 121 mg/dL (74-106) H 07/17/19 06:10 Calcium 8.6 mg/dL (8.5-10.1) 07/17/19 06:10 Phosphorus 3.4 mg/dL (2.6-4.7) 07/14/19 06:20 Magnesium 2.1 mg/dL (1.8-2.4) 07/15/19 06:50 Total Bilirubin 0.4 mg/dL (0.2-1.0) 07/13/19 11:25 AST 33 U/L (15-37) 07/13/19 11:25 ALT 29 U/L (16-63) 07/13/19 11:25 Alkaline Phosphatase 89 U/L (46-116) 07/13/19 11:25 Lactate Dehydrogenase 151 U/L (85-227) 07/13/19 11:25 Troponin I < 0.05 ng/Ml (<0.06) 07/15/19 19:15 C-Reactive Protein < 0.05 mg/dL (0.0-0.3) 07/13/19 11:25 NT-Pro-B Natriuret Pep 78 pg/mL (<300) 07/13/19 11:25 Total Protein 6.9 g/dL (6.4-8.2) 07/13/19 11:25 Albumin 3.7 g/dL (3.4-5.0) 07/13/19 11:25 Triglycerides 112 mg/dL (<150) 07/17/19 06:10 Total Cholesterol 187 mg/dL (<200) 07/17/19 06:10 LDL Cholesterol, Calc 82 mg/dL (<100) 07/17/19 06:10 HDL Cholesterol 83 mg/dL (40-60) 07/17/19 06:10 TSH 0.32 uIU/mL (0.36-3.74) L 07/14/19 06:20 Free T4 1.17 ng/dL (0.76-1.46) 04/03/20 06:20 Urine Opiates Screen Negative (Negative) 07/14/19 04:50 Urine Methadone Screen Negative (Negative) 07/14/19 04:50 Ur Barbiturates Screen Negative (Negative) 07/14/19 04:50 Ur Tricyclics Screen Negative (Negative) 07/14/19 04:50 Ur Amphetamines Screen Negative (Negative) 07/14/19 04:50 U Benzodiazepines Scrn Negative (Negative) 07/14/19 04:50 Urine Cocaine Screen Negative (Negative) 07/14/19 04:50 Ur THC Screen Positive (Negative) A 07/14/19 04:50 Ethyl Alcohol Cancelled 07/13/19 13:29
--- NOTE | 2019-07-17 16:07 | CHAPLAIN ---
Paulino was in bed receiving some IV meds when I stopped in. He said he hopes to go home to . He has been uncomfortable, but said the pain medication is working today. He will meet with Dr. Hair for a Palliative Care consult tomorrow. Paulino talked about his a family a bit. He has a brother in [place], [place], although the are not in touch. He is in touch with a sister and brother in [place], [place] area. His sister has MS and other medical issues and is on disability, Paulino said. He is in contact with his brother and sister by phone. 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
[2019-07-17] MEDS: Enoxaparin 40 MG/0.4 ML SYR SC (16:16)
[2019-07-17] MEDS: LORazepam 0.5 MG TAB PO ×3 (16:16→21:35)
[2019-07-17] MEDS: Potassium Chloride 20 MEQ TABCR 40 MEQ PO (16:16)
[2019-07-17] MEDS: Lidocaine 5% Patch 1 PATCH TP (17:45)
[2019-07-17] MEDS: Metoprolol 5 MG/5 ML VIAL IVP (18:52)
[2019-07-17] MEDS: Docusate Sodium 100 MG CAP PO (20:19)
[2019-07-17] MEDS: Atorvastatin 40 MG TAB PO (20:20)
[2019-07-17] MEDS: Biotene Mouthwash 237 ML BTL MM (20:22)
[2019-07-17] MEDS: diphenhydrAMINE 25 MG CAP PO (21:34)
[2019-07-17] MEDS: Lisinopril 10 MG TAB PO (21:35)
[2019-07-18] VITALS (8 sets, daily range): BP systolic 99–159; BP diastolic 68–110; PULSE 85–106; RESP 18–22; TEMP 35.9–36.6; O2SAT 95–98
[2019-07-18] MEDS: Lidocaine Patch Removal 1 EACH TD (05:15)
[2019-07-18 06:29] LABS: Platelet Count 299 x1000/uL (130-400)
[2019-07-18] MEDS: Tamsulosin 0.4 MG CAPCR PO (07:43)
[2019-07-18] MEDS: guaiFENesin 600 MG TABCR PO ×2 (07:43→20:18)
[2019-07-18] MEDS: predniSONE 20 MG TAB 60 MG PO (07:43)
[2019-07-18] MEDS: Benzonatate 200 MG CAP PO ×3 (07:43→20:18)
[2019-07-18] MEDS: Aspirin E.C. 81 MG TABEC PO (07:43)
[2019-07-18] MEDS: Finasteride 5 MG TAB PO (07:43)
[2019-07-18] MEDS: dilTIAZem CD 120 MG CAPCR 240 MG PO (07:43)
[2019-07-18] MEDS: Folic Acid 1 MG TAB PO (07:43)
[2019-07-18] MEDS: Magnesium Gluconate 500 MG TAB PO ×2 (07:44→20:18)
[2019-07-18] MEDS: Omeprazole 20 MG CAPCR PO (07:44)
[2019-07-18] MEDS: LORazepam 0.5 MG TAB PO ×4 (07:44→22:27)
[2019-07-18] MEDS: levoFLOXacin 500 MG, levoFLOXacin 250 MG 750 MG PO (07:44)
[2019-07-18] MEDS: Docusate Sodium 100 MG CAP PO ×3 (07:44→20:18)
[2019-07-18] MEDS: Multivitamin TAB 1 TAB PO (07:44)
[2019-07-18] MEDS: Isosorbide Mononitrate 30 MG TABCR PO (07:44)
[2019-07-18] MEDS: Thiamine 100 MG TAB PO (07:45)
[2019-07-18] MEDS: Polyethylene Glycol 3350 17 GM PACKET PO (07:54)
[2019-07-18] MEDS: Biotene Mouthwash 237 ML BTL MM ×2 (07:54→20:20)
[2019-07-18] MEDS: Budesonide/Formoterol 160/4.5 6 GM 60 PUFF INH IH ×2 (07:59→20:21)
[2019-07-18] MEDS: Tiotropium Bromide-Respimat 10 PUFF INH IH (07:59)
--- NOTE | 2019-07-18 08:15 | NT_ITS ---
Date of service: 07/18/19 Time of Service: 08:15 Occupational Therapy Notes 07/18/19 OT spoke with care management who states that pt would like to hold on rehabilitative services until after Palliative care consult which is going to be performed today. OT will hold on referral until after Palliative consult with pt to determine pts needs. Becki Correa OTR/[facility]
[2019-07-18] MEDS: Nicotine 21 MG/24 HR PATCH TD (10:57)
--- NOTE | 2019-07-18 11:12 | PDOC.CMPRO ---
- If Service Date Differs Date of service: 07/18/19 Time of Service: 11:12 Care Management Progress Note S/O: Paulino was lying in bed when CM met with him. He was pleasant and engaged readily with CM. He stated that he slept really well last night and that he feels much better with the Ativan and Morphine that he is receiving.Paulino also shared that he discussed his upcoming palliative care consult with Ata, his roomate, and that Ata told him last night that it would be OK if he came home on hospice and at home. When Dr. Hair met with him, along with AMY and his nurse, Paulino shared that information. While he voiced wanting to be on hospice, the final decision will be made at his follow up visit with Dr. Hair on 08/01/19. A COLST form was completed and filed today. A copy was faxed to the PA in [place] as well. A: Bonifacio is a 63 year old male admitted to [facility] for COPD exacerbation. P: Anticipate Bonifacio will return home when medically cleared with new orders for HH RN and PT. Anticipate his friend, Ata, will drive him home via private vehicle. CM will continue to follow and support discharge planning considerations.
--- NOTE | 2019-07-18 11:18 | PT.INNT ---
Date of service: 07/18/19 Time of Service: 11:18 PT Notes Visit Reasons: COPD EXACERBATION Patient on hold per Case Management until he meets with palliative care.
--- NOTE | 2019-07-18 13:53 | W.PM.PROGNOT ---
Date of Service Date of service: 07/18/19 Time of Service: 13:54 Assessment and Plan Assessment and plan (1) COPD exacerbation: Status: Acute Assessment and plan: Symptoms have significantly improved today, he is stable at rest without oxygen. We are discontinuing nebulized therapy as a general measure to decrease risk of COVID 19. Levalbuterol to inhaler form. Continue PRN Spiriva, consider adding long-acting beta agonist as well when heart rate better controlled. Continue low dose oral morphine and ativan for dyspnea. Continue oral Levaquin now day 3 of a total of 5 days. (2) Chest pain: Status: Acute Assessment and plan: CP much improved on morphine and lorazepam. He has not needed IV metoprolol, will stop this. His pulse is still high, will increase diltiazem and continue the isosorbide mononitrate. Continue to monitor on telemetry for now as we titrate the rate control agents. Qualifiers: Chest pain type: unspecified Qualified Code(s): R07.9 - Chest pain, unspecified (3) Pulmonary cachexia due to chronic obstructive pulmonary disease: Status: Acute Assessment and plan: He may improve with better palliative treatment as above. Continue high-protein supplements. (4) Alcoholism: Status: Acute Assessment and plan: He has not scored higher than 6 on CIWA, CIWA now discontinued. (5) End of life care: Status: Acute Assessment and plan: He was seen today by Dr. Bedolla to clarify goals of care and to plan possible hospice status. He is not clearly qualify at this point because he is not hypoxic, but his disease has progressed so he may qualify in the near future. Plan is to follow-up with Dr. Hair in 2 weeks in his home as an outpatient. He confirmed today he is DNR/DNI would like to avoid hospitalization in the future. Follow-up with palliative at home as above. (6) Insomnia: Status: Acute Assessment and plan: Frustrated as he has not been sleeping, some improvement with diphenhydramine for sleep and hs ativan prn for breathing. (7) DVT prophylaxis: Status: Acute Assessment and plan: Enoxaparin for DVT prophylaxis. (8) Discharge planning issues: Status: Acute Assessment and plan: Patient would prefer to return home where he lives in a farm house with his roommate and partner Ata and their dog. He has had experience at health and rehab. He has had home health previously. We will resume physical and occupational therapy at this point with a goal of discharge home when safe with home services. Subjective Subjective Patient reports: voiding w/o difficulty; denies diarrhea, nausea, vomiting and fever Interval history since last seen: 24-hour: Started on morphine and Lorazepam as palliative treatment for dyspnea and chest pain Patient states he feels significantly better with the pain being treated as above. Chest pain and dyspnea improved. He still feels quite weak, is difficult to get up off the bed or even sit up, but he does think he is improving. He is eating some and drinking 3 Ensure shakes a day. Exam Narrative Exam Narrative: Middle-age frail male who appears to be older than his stated age. He is alert and oriented person place time and circumstance. He is able to carry full conversations but appears SOB after sitting up on side of the bed. Lungs reveal prolonged expiratory phase with diffusely diminished breath sounds. No wheeze or rales currently. Heart is regular rate and rhythm to slightly tachycardic without murmur rub or gallop. Abdomen scaphoid. Extremities without cyanosis or edema. Objective Objective Clinical Data: Vital Signs Temperature 35.9 C L 07/18/19 11:55 Temperature Source Tympanic 07/18/19 11:55 Pulse 103 H 07/18/19 11:55 Pulse Rhythm Regular 07/18/19 07:45 Pulse 116 H 07/13/19 15:10 Respiratory Rate 20 07/18/19 11:55 Respiratory Effort Non-Labored 07/18/19 07:45 Respiratory Depth Normal 07/18/19 07:45 Respiratory Pattern Normal 07/18/19 07:45 Blood Pressure 112/77 07/18/19 11:55 Blood Pressure Mean 117 07/13/19 15:00 Blood Pressure Position Sitting 07/13/19 11:13 Pulse Oximetry 97 07/18/19 11:55 Oxygen Delivery Method Room Air 07/18/19 11:55 Oxygen Flow Rate 0 07/18/19 11:55 Fraction of Inspired Oxygen (FIO2) 30 07/13/19 13:11 Pain Level 2 07/18/19 07:30 Comment 07/17/19 12:35 Intake & Output 07/17/19 07/18/19 07/18/19 23:59 11:59 23:59 Intake Total 820 / 1290 260 / 260 Output Total 400 / 1500 520 / 520 Balance 420 / -210 -260 / -260 Weight 54.9 kg Intake: Oral 820 / 1270 260 / 260 Output: Urine 400 / 1500 520 / 520 Other: Urine Color Yellow Dark Cindy Urine Appearance Clear Clear Urine Odor None None Comment urine togethr with stool Stool Occult Blood Negative Stool Size Small Large Stool Characteristics Soft Soft Formed Voiding Methods Urinal Urinal Laboratory Results WBC 5.58 k/cumm (4.4-10.8) 07/14/19 06:20 RBC 4.26 m/cumm (4.50-6.00) L 07/14/19 06:20 Hgb 11.8 g/dL (13.5-17.5) L 07/14/19 06:20 Hct 34.9 % (40.0-50.0) L 07/14/19 06:20 MCV 81.9 fL (80-95) 07/14/19 06:20 MCH 27.7 pg (27.0-33.0) 07/14/19 06:20 MCHC 33.8 g/dL (32.0-36.0) 07/14/19 06:20 RDW 15.7 % (11.8-14.1) H 07/14/19 06:20 Plt Count 299 x1000/uL (130-400) 07/18/19 06:15 MPV 9.1 fL (8.0-11.0) 07/14/19 06:20 Immature Gran % 0.4 % 07/14/19 06:20 Neutrophils % 86.7 07/14/19 06:20 Lymphocytes % 8.8 07/14/19 06:20 Monocytes % 4.1 07/14/19 06:20 Eosinophils % 0.0 07/14/19 06:20 Basophils % 0.0 07/14/19 06:20 Absolute Neutrophils 4.84 k/cumm (1.2-6.7) 07/14/19 06:20 Absolute Lymphocytes 0.49 k/cumm (1.2-3.4) L 07/14/19 06:20 Absolute Monocytes 0.23 k/cumm (0.11-0.7) 07/14/19 06:20 Absolute Eosinophils 0.00 k/cumm (0.0-0.7) 07/14/19 06:20 Absolute Basophils 0.00 k/cumm (0.0-0.2) 07/14/19 06:20 D-Dimer 852 ng/mlFEU (<500) H 07/13/19 11:25 Sodium 129 mmol/L (136-145) L 07/17/19 06:10 Potassium 3.2 mmol/L (3.5-5.1) L 07/17/19 06:10 Chloride 93 mmol/L (98-107) L 07/17/19 06:10 Carbon Dioxide 28.8 mmol/L (21.0-32.0) 07/17/19 06:10 Anion Gap 7.2 mmol/L (3-11) 07/17/19 06:10 BUN 26 mg/dL (7-18) H 07/17/19 06:10 Creatinine 0.61 mg/dL (0.70-1.30) L 07/17/19 06:10 Estimated GFR/1.73 m2 >= 60.00 (mL/min/1.73m2) 07/17/19 06:10 Glucose 121 mg/dL (74-106) H 07/17/19 06:10 Calcium 8.6 mg/dL (8.5-10.1) 07/17/19 06:10 Phosphorus 3.4 mg/dL (2.6-4.7) 07/14/19 06:20 Magnesium 2.1 mg/dL (1.8-2.4) 07/15/19 06:50 Total Bilirubin 0.4 mg/dL (0.2-1.0) 07/13/19 11:25 AST 33 U/L (15-37) 07/13/19 11:25 ALT 29 U/L (16-63) 07/13/19 11:25 Alkaline Phosphatase 89 U/L (46-116) 07/13/19 11:25 Lactate Dehydrogenase 151 U/L (85-227) 07/13/19 11:25 Troponin I < 0.05 ng/Ml (<0.06) 07/15/19 19:15 C-Reactive Protein < 0.05 mg/dL (0.0-0.3) 07/13/19 11:25 NT-Pro-B Natriuret Pep 78 pg/mL (<300) 07/13/19 11:25 Total Protein 6.9 g/dL (6.4-8.2) 07/13/19 11:25 Albumin 3.7 g/dL (3.4-5.0) 07/13/19 11:25 Triglycerides 112 mg/dL (<150) 07/17/19 06:10 Total Cholesterol 187 mg/dL (<200) 07/17/19 06:10 LDL Cholesterol, Calc 82 mg/dL (<100) 07/17/19 06:10 HDL Cholesterol 83 mg/dL (40-60) 07/17/19 06:10 TSH 0.32 uIU/mL (0.36-3.74) L 07/14/19 06:20 Free T4 1.17 ng/dL (0.76-1.46) 07/14/19 06:20 Urine Opiates Screen Negative (Negative) 07/14/19 04:50 Urine Methadone Screen Negative (Negative) 07/14/19 04:50 Ur Barbiturates Screen Negative (Negative) 07/14/19 04:50 Ur Tricyclics Screen Negative (Negative) 07/14/19 04:50 Ur Amphetamines Screen Negative (Negative) 07/14/19 04:50 U Benzodiazepines Scrn Negative (Negative) 07/14/19 04:50 Urine Cocaine Screen Negative (Negative) 07/14/19 04:50 Ur THC Screen Positive (Negative) A 07/14/19 04:50 Ethyl Alcohol Cancelled 07/13/19 13:29
[2019-07-18] MEDS: dilTIAZem CD 120 MG CAPCR PO (14:26)
[2019-07-18] MEDS: Potassium Chloride 20 MEQ TABCR 40 MEQ PO (14:49)
[2019-07-18] MEDS: Enoxaparin 40 MG/0.4 ML SYR SC (15:45)
--- NOTE | 2019-07-18 16:14 | CHAPLAIN ---
Bonifacio said he will be meeting with Dr. Hair today for a palliative care consult. He said he today he feels more clear and that he slept well last night and had a nap this morning. Before that, he said, he was feeling very sleep deprived and was not thinking clearly. Yesterday we talked about his family. He is very much looking forward to going home. I will continue to visit.
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
[2019-07-18] MEDS: Lidocaine 5% Patch 1 PATCH TP (18:38)
[2019-07-18] MEDS: Atorvastatin 40 MG TAB PO (20:18)
[2019-07-18] MEDS: diphenhydrAMINE 25 MG CAP PO (22:27)
[2019-07-18] MEDS: Lisinopril 10 MG TAB PO (22:27)
[2019-07-19 03:20] VITALS: BP 150/60; PULSE 82; RESP 17; TEMP 36.8; O2SAT 95
[2019-07-19] MEDS: Acetaminophen 325 MG TAB PO (03:26)
[2019-07-19] MEDS: Ibuprofen 600 MG TAB PO (03:27)
[2019-07-19] MEDS: Lidocaine Patch Removal 1 EACH TD (06:14)
[2019-07-19 07:07] LABS: Anion Gap 6.4 mmol/L (3-11); BUN 27 mg/dL (7-18); CO2 27.6 mmol/L (21.0-32.0); CREATININE 0.59 mg/dL (0.70-1.30); Calcium 8.4 mg/dL (8.5-10.1); Chloride 95 mmol/L (98-107); Glucose 83 mg/dL (74-106); Potassium 4.3 mmol/L (3.5-5.1); Sodium 129 mmol/L (136-145)
[2019-07-19 07:27] VITALS: BP 156/94; PULSE 76; RESP 18; TEMP 36.2; O2SAT 100
[2019-07-19] MEDS: Magnesium Gluconate 500 MG TAB PO (07:54)
[2019-07-19] MEDS: Folic Acid 1 MG TAB PO (07:54)
[2019-07-19] MEDS: Multivitamin TAB 1 TAB PO (07:55)
[2019-07-19] MEDS: guaiFENesin 600 MG TABCR PO (07:55)
[2019-07-19] MEDS: Finasteride 5 MG TAB PO (07:55)
[2019-07-19] MEDS: Isosorbide Mononitrate 30 MG TABCR PO (07:55)
[2019-07-19] MEDS: Tamsulosin 0.4 MG CAPCR PO (07:55)
[2019-07-19] MEDS: dilTIAZem CD 120 MG CAPCR 360 MG PO (07:55)
[2019-07-19] MEDS: Thiamine 100 MG TAB PO (07:55)
[2019-07-19] MEDS: predniSONE 20 MG TAB 60 MG PO (07:55)
[2019-07-19] MEDS: Aspirin E.C. 81 MG TABEC PO (07:56)
[2019-07-19] MEDS: Benzonatate 200 MG CAP PO ×2 (07:56→14:02)
[2019-07-19] MEDS: LORazepam 0.5 MG TAB PO ×2 (07:56→14:02)
[2019-07-19] MEDS: Docusate Sodium 100 MG CAP PO ×2 (07:56→14:02)
[2019-07-19] MEDS: Omeprazole 20 MG CAPCR PO (07:56)
[2019-07-19] MEDS: levoFLOXacin 500 MG, levoFLOXacin 250 MG 750 MG PO (07:56)
[2019-07-19] MEDS: Potassium Chloride 20 MEQ TABCR PO (07:56)
[2019-07-19] MEDS: Biotene Mouthwash 237 ML BTL MM (07:57)
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
[2019-07-19] MEDS: Tiotropium Bromide-Respimat 10 PUFF INH IH (08:14)
[2019-07-19] MEDS: Budesonide/Formoterol 160/4.5 6 GM 60 PUFF INH IH (08:15)
--- NOTE | 2019-07-19 09:54 | PDOC.CMPRO ---
- If Service Date Differs Date of service: 07/19/19 Time of Service: 09:54 Care Management Progress Note S/O: A: Bonifacio is a 63 year old male admitted to [facility] for COPD exacerbation. P: Anticipate Bonifacio will return home when medically cleared with new orders for HH RN and PT. Anticipate his friend, Ata, will drive him home via private vehicle. CM will continue to follow and support discharge planning considerations.
[2019-07-19 11:23] VITALS: BP 110/77; PULSE 99; RESP 18; TEMP 36.5; O2SAT 97
--- NOTE | 2019-07-19 12:37 | PDOC.HHF2F_ITS ---
Home Health Certification Home Health Certification: 1. Encounter Date and Reason I certify that DOROTHY WANG was seen by Mitchell Singleton on 07/19/19 and that I had a [id number] encounter with this patient that meets the physician face to face encounter requirements. 2. Clinical Findings Supporting Skilled Need and Homebound Status I certify that home health services are medically necessary, include either intermittent senior care and/or physical/speech therapy, and that this patient is homebound in that absences from the home require considerable and taxing effort and are infrequent or of short duration, or are attributable to the need to receive medical care. [X] (a) Attached documentation from encounter provides clinical findings supporting skilled need and homebound status (including what assistance patient requires to leave the home). The encounter with the patient was in whole, or in part, for the following medical condition, which is the primary reason for home health care: COPD EXACERBATION Halfway: Wound care for chronic pressure wound on heel, see wound care recommendations Physical Therapy: Evaluate home for safety and mobility. Occupational Therapy recommended for bathing, dressing, grooming, toileting, eating, and transfer training. Speech Therapy: Homebound: Patient has limited mobility due to advanced COPD with severe exertional dyspnea and weakness related to COPD associated cachexia. 3. Certification and Authentication I certify that I composed the above information based on my clinical judgement relating to this patient's medical condition and, if applicable, clinical findings communicated to me by the NPP or inpatient physician who performed the Home Health Referral. All further orders will be obtained through Donovan Mcbride [facility] (Community Based Physician - PCP)
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
--- NOTE | 2019-07-19 13:45 | PT.INDS ---
Date of service: 07/19/19 Time of Service: 09:30 PT Notes Visit Reasons: COPD EXACERBATION Inpatient Physical Therapy Discharge Summary Dates: July 19, 2019 Dates of Service: 07/14/2019-07/19/2019 SUBJECTIVE: Bonifacio notes that he is feeling better and continues to get stronger. He is ready to go home. He notes that his home is already set up for him and is all on 1 level. OBJECTIVE: Pain: declines any pain ROM: L UE: WNL R UE: WNL L LE: WNL R LE: WNL STRENGTH: L UE: WNL R UE: WNL L LE: WNL R LE: WNL BED MOBILITY/TRANSFERS: Supine-sit I HOB 30degrees Sit-supine I HOB 30 degrees Sit-stand S Stand-sit S Bed-Chair S with use of FWW Chair-bed S with use of FWW GAIT: FWW, FWB, S only BALANCE: Static sitting: Normal Dynamic sitting: Normal Static standing: Good Dynamic standing: Good Therapeutic Exercise: Completed UE/LE strength and conditioning per flow sheet focusing on functional mobility and large muscle groups. See flow sheet for specifics. ASSESSMENT: Bonifacio has made definite gains since admission. Feel he should continue with use of walker at home for safe ambulation. GOALS ( Met / Not Met): Goals: 1. Supine-Sit independent (MET) 2. Sit-Supine independent (MET) 3. Sit-Stand independent (progressing towards, S only) 4. Stand-Sit independent (progressing towards, S only) 5. Bed-Chair independent (progressing towards, S only) 6. Chair-Bed independent (progressing towards, S only) 7. Independent gait on level surface with use of least restrictive device for at least 200 feet without report of pain nor dyspnea (progressing towards) 8. Independent stair negotiation while holding onto bilateral rails for at least 3 steps without report of pain nor dyspnea (progressing towards) 9. Independent with home exercise program (MET) 10. Good static and dynamic standing balance/tolerance (MET) DISCHARGE PLAN/RECOMMENDATIONS: Patient is considered discharged from skilled PT services at this time home with services. Recommend continued use of walker for safe ambulation. [id number], [id number] 25 minutes 9:30 AM TORI Bhatt
--- NOTE | 2019-07-19 14:01 | CMDISCH_ITS ---
- If Service Date Differs Date of service: 07/19/19 Time of Service: 14:01 LACE Index Scoring Tool - Questions: Length of Stay (in days): 4 - 6 Acuity (Admit via E.D.?): Yes Comorbidities: Chronic Pulmonary Disease E.D. Visits: 2 - Answers: Total Score: 11 Risk of Readmission: High Risk Care Management Discharge Reason for Hospitalization: COPD exacerbation Discharge Plan: Bonifacio is being discharged home today, AMY is coordinating prescriptions through [facility], he has only the [facility] insurance and all his regular prescribed medications need to go through [facility]. He also has new home health orders, CM contacted Adalgisa Gutierrez RN CM at the [facility] she is authorizing new services for Bonifacio. Bonifacio will meet with Dr. Hari as scheduled in two weeks. He states he feels ready to be discharged home. CM reviewed the plan with the [facility] RN, and provider is not going to continue to supply the narcotics or the Lorazapam for the Bonifacio. All patients medications will need to be paid for out of pocket until the [facility] is able to send him the prescriptions. CM contacted [facility] in [facility] to request a cost of medications. Bonifacio will cover the cost. CM faxed discharge med list to the [facility] including discharge summary. Patient/Family Education Needs: Bonifacio denies that he is or has been suicidal. He states he was not sleeping when first admitted and his pain was not controlled. He reports the Lorazapam is helping him rest better. Bonifacio has COPD and history of alcohol use and would benefit from ongoing supports for his mental health. CM request the [facility] continue to support Bonifacoi and his mental health. CM requested the provider determine if patient needs to be seen by mental health. Discharging provider states he has met with the patient and the patient denies any SI. CM reviewed the discharge plan, limitations and follow up plan of care including ask me three and self management. Services Needed at Discharge: Home Health Care Services, Transportation
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
== END 2019-07-19 14:35 | disposition home health service (06) | DRG 190 ==
LOC: ER 15:30 → MS 15:38
PROVIDERS: Admitting Provider Internal Medicine; Emergency Provider Student in an Organized Health Care Education/Training Program; PCP Internal Medicine; Visit Provider Family Medicine
DX: J44.1 Chronic obstructive pulmonary disease with (acute) exacerbation (principal); L89.613 Pressure ulcer of right heel, stage 3; R45.851 Suicidal ideations; R64 Cachexia; R53.1 Weakness; Z51.5 Encounter for palliative care; F10.20 Alcohol dependence, uncomplicated; I25.2 Old myocardial infarction; R07.89 Other chest pain; F17.210 Nicotine dependence, cigarettes, uncomplicated; Z66 Do not resuscitate; Z68.21 Body mass index [BMI] 21.0-21.9, adult; I10 Essential (primary) hypertension; K21.9 Gastro-esophageal reflux disease without esophagitis; M40.204 Unspecified kyphosis, thoracic region; G47.00 Insomnia, unspecified; R68.2 Dry mouth, unspecified
CPT/HCPCS: 36410; 36415; 71275; 80048; 80053; 80061; 80307; 93005; 94618; 94640; 96365; 96375; 97110; 97162; 97165; 97530; 97535; 99220; 99232; 99233; 99239; 99255; 99285; J1650; 80320; 83615; 83735; 83880; 84100; 84439; 84443; 84484; 85025; 85049; 85379; 86140; 87070; 87205; 93010; 93306; G0378; J1956; J2060; J2270; J2930; J3475; J3490; J7512; J7613; J7614; J7620; J7644

== ENCOUNTER 2019-09-04 03:09 | Inpatient (IN) | payer OTHER, SELFPAY ==
[2019-09-04] VITALS (30 sets, daily range): BP systolic 130–211; BP diastolic 80–112; PULSE 76–122; RESP 7–36; TEMP 36.2–37.3; O2SAT 83–100
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
[2019-09-04] MEDS: Albuterol/Ipratropium 3 ML UPD VIAL 9 ML UPD (03:36)
[2019-09-04] MEDS: methylPREDNISolone SUCC 125 MG VIAL IVP (03:37)
[2019-09-04 04:01] LABS: BE (Venous) 0.1 mmol/L (-3-3); HCO3 (Venous) 25 mmol/L (22-28); O2 Sat (Venous) 62 % (70-80); TCO2 (Venous) 23 mmol/L (22-29); pCO2 (Venous) 40 mm/Hg (34-47); pO2 (Venous) 35 mm/Hg (28-44)
[2019-09-04 04:03] LABS: Abs Immature Grans 0.08 k/cumm (0.0-0.09); Absolute Basophil Count 0.02 k/cumm (0.0-0.2); Absolute Lymphocyte Count 0.78 k/cumm (1.2-3.4); Absolute Monocyte Count 1.41 k/cumm (0.11-0.7); Absolute Neutrophil Count 17.62 k/cumm (1.2-6.7); Basophils % 0.1; HCT 36.1 % (40.0-50.0); Immature Grans % 0.4 %; Lymphocytes % 3.9; Mean Corpuscular Hemoglobin 28.7 pg (27.0-33.0); Mean Corpuscular Volume 79.7 fL (80-95); Mean Platelet Volume 8.8 fL (8.0-11.0); Monocytes % 7.1; Neutrophils % 88.5; Platelet Count 327 x1000/uL (130-400); RBC 4.53 m/cumm (4.50-6.00); RBC Distribution Width 18.8 % (11.8-14.1); White Blood Cell Count 19.91 k/cumm (4.4-10.8)
--- NOTE | 2019-09-04 04:10 | DI.RAD_ITS ---
EXAM: XR PORTABLE CHEST AP CLINICAL HISTORY: SOB, COPD, r/o infiltrate TECHNIQUE: 2D digital imaging was performed. COMPARISON: CR XR CHEST 1V IN DI DEPT from 06/23/2018 FINDINGS: The heart size is normal. The aorta is calcified. Surgical clips are again noted near the GE juncti on. There is severe underlying emphysematous changes greater in the upper lobes. There are areas of scarring bilaterally. There are old right upper rib fractures. There [facility]. There is question of mildly increased densities at the lung bases when christal red with the previous exam. IMPRESSION: Question of mild bilateral lower lobe infiltrates versus chronic changes. Severe underlying emphysem atous changes and scarring are again noted.
--- NOTE | 2019-09-04 04:24 | DI.VRAD_ITS ---
PROCEDURE INFORMATION: Exam: XR Chest, 1 View Exam date and time: 09/04/2019 4:06 AM Age: 63 years old Clinical indication: Shortness of breath; Patient HX: SOB, copd, R/O infiltrate TECHNIQUE: Imaging protocol: XR of the chest Views: 1 view. COMPARISON: CR XR CHEST 1V IN DI DEPT 06/23/2018 3:36 AM FINDINGS: Lungs: Chronic appearing interstitial markings seen bilaterally. Atelectasis seen in the left and right lower lobes of the lung. The possibility of an early pneumonia cannot be excluded. The lungs are hyperinflated, consistent with underlying small airways disease. Pleural space: The left pleura appears unremarkable. Heart/Mediastinum: The cardiac structures are normal. Diaphragm: Probable scarring and elevation of the right hemidiaphragm there may be a small pleural effusion. Bones/joints: Multiple healed right-sided rib fractures present. Soft tissues: The soft tissues of the extrathoracic region are unremarkable. Other findings: . IMPRESSION: 1. The lungs are hyperinflated, consistent with underlying small airways disease. 2. Probable scarring and elevation of the right hemidiaphragm there may be a small pleural effusion. Dictated and Authenticated by: Filippo Schwartz MD. Ordering:LOREE Pozo MD
[2019-09-04 04:25] LABS: ALT 32 U/L (16-63); AST 34 U/L (15-37); Albumin 3.8 g/dL (3.4-5.0); Alkaline Phosphatase 96 U/L (46-116); Anion Gap 9.2 mmol/L (3-11); BUN 9 mg/dL (7-18); Bilirubin, Total 0.5 mg/dL (0.2-1.0); CO2 24.8 mmol/L (21.0-32.0); CREATININE 0.75 mg/dL (0.70-1.30); Chloride 86 mmol/L (98-107); Glucose 96 mg/dL (74-106); NT-proBNP 362 pg/mL (<300); Potassium 5.2 mmol/L (3.5-5.1); Total Protein 7.1 g/dL (6.4-8.2); Troponin I < 0.05 ng/Ml (<0.06)
[2019-09-04 04:26] LABS: Sodium 120 mmol/L (136-145)
[2019-09-04] MEDS: Normal Saline 1,000 ML 1000 ML IV (04:37)
[2019-09-04 04:41] LABS: Bilirubin Negative (Negative); Blood Negative (Negative); Clarity Clear (Clear); Glucose Negative (Negative); Ketones 15 mg/dL (Negative); Leukocyte Esterase Negative (Negative); Nitrite Negative (Negative); Urobilinogen 0.2 EU/dL (Up TO 0.2)
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
[2019-09-04 08:18] LABS: Troponin I < 0.05 ng/Ml (<0.06)
[2019-09-04] MEDS: Heparin 5,000 UNITS/ML VIAL 5000 UNITS SC ×3 (08:30→23:42)
[2019-09-04] MEDS: Omeprazole 20 MG CAPCR PO (09:22)
[2019-09-04] MEDS: Multivitamin TAB 1 TAB PO (09:22)
[2019-09-04] MEDS: Nicotine 21 MG/24 HR PATCH TD (09:23)
[2019-09-04] MEDS: Acetaminophen 325 MG TAB 650 MG PO ×2 (09:24→13:38)
[2019-09-04] MEDS: dilTIAZem CD 120 MG CAPCR 360 MG PO (09:25)
[2019-09-04] MEDS: Lisinopril 5 MG TAB 10 MG PO (09:25)
[2019-09-04] MEDS: Aspirin E.C. 81 MG TABEC PO (09:25)
[2019-09-04] MEDS: Ibuprofen 600 MG TAB PO ×3 (09:25→20:36)
[2019-09-04] MEDS: LORazepam 0.5 MG TAB PO ×3 (09:26→20:36)
[2019-09-04] MEDS: methylPREDNISolone SUCC 125 MG VIAL 80 MG IVP ×2 (09:26→17:24)
[2019-09-04] MEDS: Finasteride 5 MG TAB PO (09:26)
[2019-09-04] MEDS: cefTRIAXone 1 GM/50 ML BAG IVPB (09:26)
[2019-09-04] MEDS: Normal Saline 1,000 ML 100 ML IV ×2 (09:48→20:53)
[2019-09-04] MEDS: DOXYCYCLINE 100 MG in Normal Saline 100 ML IVPB ×2 (11:32→22:52)
[2019-09-04] MEDS: Budesonide/Formoterol 160/4.5 6 GM 60 PUFF INH IH ×2 (12:25→20:37)
[2019-09-04] MEDS: Albuterol/Ipratropium 3 ML UPD VIAL UPD ×2 (12:25→17:40)
[2019-09-04 12:40] LABS: Anion Gap 13.6 mmol/L (3-11); BUN 8 mg/dL (7-18); CO2 21.4 mmol/L (21.0-32.0); CREATININE 0.65 mg/dL (0.70-1.30); Calcium 8.5 mg/dL (8.5-10.1); Chloride 87 mmol/L (98-107); Glucose 127 mg/dL (74-106); Potassium 4.4 mmol/L (3.5-5.1)
[2019-09-04 12:45] LABS: Sodium 122 mmol/L (136-145)
--- NOTE | 2019-09-04 15:45 | W.PM.PROGNOT ---
Date of Service Date of service: 09/04/19 Time of Service: 15:45 Subjective Subjective Interval history since last seen: Mr Blair states he is feeling much better. Cough is nonproductive. Sodium has improved to 122 with IV fluids and IV hydrocortisone. Will continue to trend Q6hrs. No change in tx otherwise. Objective Objective Clinical Data: Abnormal lab results 09/04/19 09/04/19 09/04/19 Range/Units 03:35 03:35 03:35 WBC 19.91 H (4.4-10.8) k/cumm Hgb 13.0 L (13.5-17.5) g/dL Hct 36.1 L (40.0-50.0) % MCV 79.7 L (80-95) fL RDW 18.8 H (11.8-14.1) % Absolute Neutrophils 17.62 H (1.2-6.7) k/cumm Absolute Lymphocytes 0.78 L (1.2-3.4) k/cumm Absolute Monocytes 1.41 H (0.11-0.7) k/cumm VBG O2 Saturation 62 L (70-80) % Sodium 120 L* (136-145) mmol/L Potassium 5.2 H (3.5-5.1) mmol/L Chloride 86 L (98-107) mmol/L Anion Gap (3-11) mmol/L Creatinine (0.70-1.30) mg/dL Glucose (74-106) mg/dL NT-Pro-B Natriuret Pep 362 H (<300) pg/mL Urine Ketones (Negative) mg/dL 09/04/19 09/04/19 Range/Units 04:30 12:20 WBC (4.4-10.8) k/cumm Hgb (13.5-17.5) g/dL Hct (40.0-50.0) % MCV (80-95) fL RDW (11.8-14.1) % Absolute Neutrophils (1.2-6.7) k/cumm Absolute Lymphocytes (1.2-3.4) k/cumm Absolute Monocytes (0.11-0.7) k/cumm VBG O2 Saturation (70-80) % Sodium 122 L* (136-145) mmol/L Potassium (3.5-5.1) mmol/L Chloride 87 L (98-107) mmol/L Anion Gap 13.6 H (3-11) mmol/L Creatinine 0.65 L (0.70-1.30) mg/dL Glucose 127 H (74-106) mg/dL NT-Pro-B Natriuret Pep (<300) pg/mL Urine Ketones 15 H (Negative) mg/dL Vital Signs Temperature 37.3 C 09/04/19 13:46 Temperature Source Tympanic 09/04/19 13:46 Pulse 96 H 09/04/19 13:46 Pulse Rhythm Regular 09/04/19 12:56 Pulse 105 H 09/04/19 05:00 Respiratory Rate 20 09/04/19 13:46 Respiratory Effort Labored 09/04/19 12:56 Respiratory Depth Shallow 09/04/19 12:56 Respiratory Pattern Normal 09/04/19 12:56 Blood Pressure 140/86 09/04/19 13:46 Blood Pressure Mean 118 09/04/19 03:32 Pulse Oximetry 95 09/04/19 13:46 Oxygen Delivery Method Nasal Cannula 09/04/19 13:46 Oxygen Flow Rate 2 09/04/19 13:46 Pain Level 5 09/04/19 14:38 Comment 09/04/19 10:03 Intake & Output 09/03/19 09/04/19 09/04/19 23:59 11:59 23:59 Intake Total 530 / 870 340 / 870 Output Total 1450 / 1450 Balance -920 / -580 340 / -580 Weight 49.895 kg Intake: IV 50 / 150 100 / 150 Oral 480 / 720 240 / 720 Output: Urine 1450 / 1450 Other: Urine Color Yellow Urine Appearance Clear Clear Urine Odor None Voiding Methods Urinal Laboratory Results WBC 19.91 k/cumm (4.4-10.8) H 09/04/19 03:35 RBC 4.53 m/cumm (4.50-6.00) 09/04/19 03:35 Hgb 13.0 g/dL (13.5-17.5) L 09/04/19 03:35 Hct 36.1 % (40.0-50.0) L 09/04/19 03:35 MCV 79.7 fL (80-95) L 09/04/19 03:35 MCH 28.7 pg (27.0-33.0) 09/04/19 03:35 MCHC 36.0 g/dL (32.0-36.0) 09/04/19 03:35 RDW 18.8 % (11.8-14.1) H 09/04/19 03:35 Plt Count 327 x1000/uL (130-400) 09/04/19 03:35 MPV 8.8 fL (8.0-11.0) 09/04/19 03:35 Immature Gran % 0.4 % 09/04/19 03:35 Neutrophils % 88.5 09/04/19 03:35 Lymphocytes % 3.9 09/04/19 03:35 Monocytes % 7.1 09/04/19 03:35 Eosinophils % 0.0 09/04/19 03:35 Basophils % 0.1 09/04/19 03:35 Absolute Neutrophils 17.62 k/cumm (1.2-6.7) H 09/04/19 03:35 Absolute Lymphocytes 0.78 k/cumm (1.2-3.4) L 09/04/19 03:35 Absolute Monocytes 1.41 k/cumm (0.11-0.7) H 09/04/19 03:35 Absolute Eosinophils 0.00 k/cumm (0.0-0.7) 09/04/19 03:35 Absolute Basophils 0.02 k/cumm (0.0-0.2) 09/04/19 03:35 VBG pH 7.40 (7.35-7.45) 09/04/19 03:35 VBG pCO2 40 mm/Hg (34-47) 09/04/19 03:35 VBG pO2 35 mm/Hg (28-44) 09/04/19 03:35 VBG HCO3 25 mmol/L (22-28) 09/04/19 03:35 VBG Total CO2 23 mmol/L (22-29) 09/04/19 03:35 VBG O2 Saturation 62 % (70-80) L 09/04/19 03:35 VBG Base Excess 0.1 mmol/L (-3-3) 09/04/19 03:35 Sodium 122 mmol/L (136-145) L* 09/04/19 12:20 Potassium 4.4 mmol/L (3.5-5.1) 09/04/19 12:20 Chloride 87 mmol/L (98-107) L 09/04/19 12:20 Carbon Dioxide 21.4 mmol/L (21.0-32.0) 09/04/19 12:20 Anion Gap 13.6 mmol/L (3-11) H 09/04/19 12:20 BUN 8 mg/dL (7-18) 09/04/19 12:20 Creatinine 0.65 mg/dL (0.70-1.30) L 09/04/19 12:20 Estimated GFR/1.73 m2 >= 60.00 (mL/min/1.73m2) 09/04/19 12:20 Glucose 127 mg/dL (74-106) H 09/04/19 12:20 Calcium 8.5 mg/dL (8.5-10.1) 09/04/19 12:20 Total Bilirubin 0.5 mg/dL (0.2-1.0) 09/04/19 03:35 AST 34 U/L (15-37) 09/04/19 03:35 ALT 32 U/L (16-63) 09/04/19 03:35 Alkaline Phosphatase 96 U/L (46-116) 09/04/19 03:35 Troponin I < 0.05 ng/Ml (<0.06) 09/04/19 07:10 NT-Pro-B Natriuret Pep 362 pg/mL (<300) H 09/04/19 03:35 Total Protein 7.1 g/dL (6.4-8.2) 09/04/19 03:35 Albumin 3.8 g/dL (3.4-5.0) 09/04/19 03:35 Urine Color Yellow (Yellow) 09/04/19 04:30 Urine Clarity Clear (Clear) 09/04/19 04:30 Urine pH 7.0 (5-8) 09/04/19 04:30 Ur Specific [place] 1.020 (1.005-1.025) 09/04/19 04:30 Urine Protein Negative mg/dL (Negative) 09/04/19 04:30 Urine Ketones 15 mg/dL (Negative) H 09/04/19 04:30 Urine Blood Negative (Negative) 09/04/19 04:30 Urine Nitrite Negative (Negative) 09/04/19 04:30 Urine Bilirubin Negative (Negative) 09/04/19 04:30 Urine Urobilinogen 0.2 EU/dL (Up TO 0.2) 09/04/19 04:30 Ur Leukocyte Esterase Negative (Negative) 09/04/19 04:30 Urine Glucose Negative mg/dL (Negative) 09/04/19 04:30
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
[2019-09-04] MEDS: Normal Saline Flush 10 ML SYR IVP (17:25)
[2019-09-04 18:20] LABS: Anion Gap 10.9 mmol/L (3-11); BUN 8 mg/dL (7-18); CO2 24.1 mmol/L (21.0-32.0); CREATININE 0.68 mg/dL (0.70-1.30); Chloride 88 mmol/L (98-107); Glucose 167 mg/dL (74-106); Potassium 3.7 mmol/L (3.5-5.1)
[2019-09-04 18:28] LABS: Sodium 123 mmol/L (136-145)
[2019-09-04] MEDS: Atorvastatin 40 MG TAB PO (20:36)
[2019-09-04 21:08] LABS: Magnesium 1.8 mg/dL (1.8-2.4)
[2019-09-04] MEDS: Melatonin 3 MG TAB 9 MG PO (22:53)
[2019-09-05] VITALS (12 sets, daily range): BP systolic 126–138; BP diastolic 80–94; PULSE 76–91; RESP 4–24; TEMP 36.5–36.9; O2SAT 93–97
[2019-09-05 01:25] LABS: COVID-19 RT-PCR UVMMC Result Negative (Negative)
[2019-09-05] MEDS: methylPREDNISolone SUCC 125 MG VIAL 80 MG IVP ×2 (02:18→09:32)
[2019-09-05] MEDS: Albuterol/Ipratropium 3 ML UPD VIAL UPD ×3 (05:38→17:56)
[2019-09-05] MEDS: Normal Saline 1,000 ML 100 ML IV ×2 (07:02→16:30)
[2019-09-05 07:13] LABS: Abs Immature Grans 0.04 k/cumm (0.0-0.09); Absolute Lymphocyte Count 0.57 k/cumm (1.2-3.4); Absolute Monocyte Count 0.33 k/cumm (0.11-0.7); HCT 34.9 % (40.0-50.0); HGB 12.1 g/dL (13.5-17.5); Immature Grans % 0.4 %; Lymphocytes % 5.5; Mean Corp. HGB Concentration 34.7 g/dL (32.0-36.0); Mean Corpuscular Hemoglobin 28.2 pg (27.0-33.0); Mean Corpuscular Volume 81.4 fL (80-95); Mean Platelet Volume 9.3 fL (8.0-11.0); Monocytes % 3.2; Neutrophils % 90.9; Platelet Count 283 x1000/uL (130-400); RBC 4.29 m/cumm (4.50-6.00); RBC Distribution Width 18.8 % (11.8-14.1); White Blood Cell Count 10.45 k/cumm (4.4-10.8)
[2019-09-05 07:49] LABS: Anion Gap 12.2 mmol/L (3-11); BUN 8 mg/dL (7-18); CO2 22.8 mmol/L (21.0-32.0); CREATININE 0.67 mg/dL (0.70-1.30); Calcium 8.2 mg/dL (8.5-10.1); Chloride 89 mmol/L (98-107); Ferritin 197 ng/mL (26-388); Glucose 138 mg/dL (74-106); Magnesium 1.7 mg/dL (1.8-2.4); Potassium 3.1 mmol/L (3.5-5.1); Vitamin B12 490 pg/mL (193-986)
[2019-09-05 07:58] LABS: Folate > 20.0 ng/mL (8.6-20.0); Sodium 124 mmol/L (136-145)
[2019-09-05] MEDS: Budesonide/Formoterol 160/4.5 6 GM 60 PUFF INH IH ×2 (08:41→20:35)
[2019-09-05] MEDS: LORazepam 0.5 MG TAB PO ×3 (08:43→20:36)
[2019-09-05] MEDS: dilTIAZem CD 120 MG CAPCR 360 MG PO (08:43)
[2019-09-05] MEDS: Lisinopril 5 MG TAB 10 MG PO (08:43)
[2019-09-05] MEDS: Normal Saline Flush 10 ML SYR IVP (08:43)
[2019-09-05] MEDS: Omeprazole 20 MG CAPCR PO (08:43)
[2019-09-05] MEDS: Finasteride 5 MG TAB PO (08:43)
[2019-09-05] MEDS: Ibuprofen 600 MG TAB PO ×3 (08:44→20:35)
[2019-09-05] MEDS: cefTRIAXone 1 GM/50 ML BAG IVPB (08:44)
[2019-09-05] MEDS: Multivitamin TAB 1 TAB PO (08:44)
[2019-09-05] MEDS: Aspirin E.C. 81 MG TABEC PO (08:44)
[2019-09-05 08:45] LABS: Iron 73 ug/dL (65-175); Total Iron Binding Capacity 283 ug/dL (250-450); Transferrin Sat 26 % (20-55)
[2019-09-05] MEDS: Heparin 5,000 UNITS/ML VIAL 5000 UNITS SC ×2 (09:33→16:48)
[2019-09-05] MEDS: DOXYCYCLINE 100 MG in Normal Saline 100 ML IVPB ×2 (09:33→20:37)
[2019-09-05] MEDS: MAGNESIUM SULFATE 2 GM/50 ML BAG IVPB (09:33)
[2019-09-05] MEDS: Potassium Chloride 20 MEQ TABCR 40 MEQ PO ×2 (09:34→20:36)
[2019-09-05] MEDS: Nicotine 21 MG/24 HR PATCH TD (12:13)
[2019-09-05 12:16] LABS: Anion Gap 8.2 mmol/L (3-11); BUN 8 mg/dL (7-18); CO2 24.8 mmol/L (21.0-32.0); Calcium 8.1 mg/dL (8.5-10.1); Chloride 91 mmol/L (98-107); Glucose 157 mg/dL (74-106); Potassium 3.3 mmol/L (3.5-5.1)
[2019-09-05 12:19] LABS: Sodium 124 mmol/L (136-145)
--- NOTE | 2019-09-05 13:00 | PHACLINREV_ITS ---
Pharmacy Admission Review - Admission Clinical Review (Last Reviewed 09/04/19 @ 11:18 by Eugene Gastelum) Acute hyponatremia (Acute) DNI (do not intubate) (Acute) DNR (do not resuscitate) (Acute) COPD exacerbation (Acute) aspartame Adverse Reaction (Unverified 09/04/19 03:20) Other (See Comment) Height 5 ft 10 in Weight 50.3 kg - Renal Dosing Renal Dosing: BUN 8 mg/dL (7-18) 09/05/19 11:55 Creatinine 0.50 mg/dL (0.70-1.30) L 09/05/19 11:55 Medications needing adjustments: Reviewed (CRCL~68ML/MIN) - Anticoagulation Anticoagulation: Hgb 12.1 g/dL (13.5-17.5) L 09/05/19 06:58 Hct 34.9 % (40.0-50.0) L 09/05/19 06:58 Plt Count 283 x1000/uL (130-400) 09/05/19 06:58 Creatinine 0.50 mg/dL (0.70-1.30) L 09/05/19 11:55 DVT Prohphylaxis: Reviewed Medications: Heparin Therapeutic Anticoagulation: N/A - Opiate Usage Evaluate Pain Scale/Pains Meds: Reviewed (09/19 HAS APAP, IBUPROFEN AND MORPHINE PO ORDERED) Scheduled Bowel Reg ordered if on Opiates?: No (PRN) - Relevant Labs Sodium 124 mmol/L (136-145) L* 09/05/19 11:55 Potassium 3.3 mmol/L (3.5-5.1) L 09/05/19 11:55 Chloride 91 mmol/L (98-107) L 09/05/19 11:55 Magnesium 1.7 mg/dL (1.8-2.4) L 09/05/19 06:58 Electrolytes, C-Reactive P, ESR: Reviewed - DM Control DM Control: Glucose 157 mg/dL (74-106) H 09/05/19 11:55 - Heart Failure/NE Heart Failure/NE: Troponin I < 0.05 ng/Ml (<0.06) 09/04/19 07:10 NT-Pro-B Natriuret Pep 362 pg/mL (<300) H 09/04/19 03:35 EF%, HARRISON's, B-Blockers, Diuretics: N/A - BP Control BP Control: Blood Pressure 131/94 Blood Pressure 126/84 Blood Pressure 130/80 If elevated: Reviewed - Qtc Review If Elevated: N/A (412) - IV to PO Switch IV Medications: Reviewed (IV ceftriaxone and doxycycline) - Home Meds Home Med List reviewed: Reviewed (not ordered: spiriva(on [facility] [place] on solumedrol instead of PO prednisone)
--- NOTE | 2019-09-05 16:16 | PGE_ITS ---
Date of Service Date of service: 09/05/19 Time of Service: 16:16 Assessment and Plan Assessment and plan (1) COPD exacerbation: Status: Acute Assessment and plan: improving. COVID-19 ruled out. Start to taper steroids. Continue empiric antibiotics. (2) Acute hyponatremia: Status: Acute Assessment and plan: Stalled - and probably not just related to acute on chronic adrenal insufficiency, but also to dehydration. Will resume IVF and monitor sodiums. (3) Myocardial infarction: Status: Ruled-out Assessment and plan: No ACS. D/c tele. Qualifiers: Myocardial infarction type: non-ST elevation myocardial infarction Qualified Code(s): I21.4 - Non-ST elevation (NSTEMI) myocardial infarction (4) Anxiety: Status: Chronic Assessment and plan: Continue outpatient lorazepam as ordered (5) BPH (benign prostatic hyperplasia): Status: Chronic Assessment and plan: No evidence of urinary retention here by PVRs. Self- catheterizes at home. Qualifiers: Lower urinary tract symptom presence: symptoms present Lower urinary tract symptom detail: urinary retention Qualified Code(s): N40.1 - Benign prostatic hyperplasia with lower urinary tract symptoms; R33.8 - Other retention of urine Subjective Subjective Interval history since last seen: Feels better. Breathing is better. Nursing noted decreased UOP today, and patient feels thirsty - normal saline is getting restarted. Denies dizziness, chest pain, shortness of breath, nausea, vomiting. Exam Narrative Exam Narrative: General: pleasant middle-aged male, looks older than his age, tremulous, A&Ox3 HEENT: EOMI, MMM Heart: RRR, mildly tachycardic Lungs: Diminished breath sounds B with some improvement in aeration, no wheezing /rhonchi. Abdomen: soft, nontender, nondistended Extremities: no edema BLE's. +skin tenting Objective Objective Clinical Data: Abnormal lab results 09/04/19 09/05/19 09/05/19 Range/Units 18:08 06:58 06:58 RBC 4.29 L (4.50-6.00) m/cumm Hgb 12.1 L (13.5-17.5) g/dL Hct 34.9 L (40.0-50.0) % RDW 18.8 H (11.8-14.1) % Absolute Neutrophils 9.50 H (1.2-6.7) k/cumm Absolute Lymphocytes 0.57 L (1.2-3.4) k/cumm Sodium 123 L* 124 L* (136-145) mmol/L Potassium 3.1 L (3.5-5.1) mmol/L Chloride 88 L 89 L (98-107) mmol/L Anion Gap 12.2 H (3-11) mmol/L Creatinine 0.68 L 0.67 L (0.70-1.30) mg/dL Glucose 167 H 138 H (74-106) mg/dL Calcium 8.0 L 8.2 L (8.5-10.1) mg/dL Magnesium 1.7 L (1.8-2.4) mg/dL Folate > 20.0 H (8.6-20.0) ng/mL 09/05/19 Range/Units 11:55 RBC (4.50-6.00) m/cumm Hgb (13.5-17.5) g/dL Hct (40.0-50.0) % RDW (11.8-14.1) % Absolute Neutrophils (1.2-6.7) k/cumm Absolute Lymphocytes (1.2-3.4) k/cumm Sodium 124 L* (136-145) mmol/L Potassium 3.3 L (3.5-5.1) mmol/L Chloride 91 L (98-107) mmol/L Anion Gap (3-11) mmol/L Creatinine 0.50 L (0.70-1.30) mg/dL Glucose 157 H (74-106) mg/dL Calcium 8.1 L (8.5-10.1) mg/dL Magnesium (1.8-2.4) mg/dL Folate (8.6-20.0) ng/mL Vital Signs Temperature 36.8 C 09/05/19 11:15 Temperature Source Tympanic 09/05/19 11:15 Pulse 80 09/05/19 11:15 Pulse Rhythm Regular 09/05/19 08:50 Pulse 105 H 09/04/19 05:00 Respiratory Rate 16 09/05/19 11:32 Respiratory Effort Grunting 09/05/19 08:50 Respiratory Depth Shallow 09/05/19 08:50 Respiratory Pattern Normal 09/05/19 08:50 Blood Pressure 131/94 H 09/05/19 11:15 Blood Pressure Mean 118 09/04/19 03:32 Pulse Oximetry 94 L 09/05/19 11:30 Oxygen Delivery Method Nasal Cannula 09/05/19 11:30 Oxygen Flow Rate 1.5 09/05/19 11:30 Pain Level 6 09/05/19 14:13 Comment 09/04/19 10:03 Intake & Output 09/04/19 09/05/19 09/05/19 23:59 11:59 23:59 Intake Total 1375.000 / 4559.034 9955.333 / 1103.333 Output Total 950 / 950 Balance 1375.000 / 455.000 153.333 / 153.333 Weight 50.3 kg Intake: IV 1135.000 / 0124.748 0934.333 / 1103.333 Oral 240 / 720 Output: Urine 900 / 900 Post Void Residual 50 / 50 Other: Urine Color Straw Urine Appearance Clear Clear Stool Size Moderate Stool Characteristics Formed Voiding Methods Urinal Laboratory Results WBC 10.45 k/cumm (4.4-10.8) D 09/05/19 06:58 RBC 4.29 m/cumm (4.50-6.00) L 09/05/19 06:58 Hgb 12.1 g/dL (13.5-17.5) L 09/05/19 06:58 Hct 34.9 % (40.0-50.0) L 09/05/19 06:58 MCV 81.4 fL (80-95) 09/05/19 06:58 MCH 28.2 pg (27.0-33.0) 09/05/19 06:58 MCHC 34.7 g/dL (32.0-36.0) 09/05/19 06:58 RDW 18.8 % (11.8-14.1) H 09/05/19 06:58 Plt Count 283 x1000/uL (130-400) 09/05/19 06:58 MPV 9.3 fL (8.0-11.0) 09/05/19 06:58 Immature Gran % 0.4 % 09/05/19 06:58 Neutrophils % 90.9 09/05/19 06:58 Lymphocytes % 5.5 09/05/19 06:58 Monocytes % 3.2 09/05/19 06:58 Eosinophils % 0.0 09/05/19 06:58 Basophils % 0.0 09/05/19 06:58 Absolute Neutrophils 9.50 k/cumm (1.2-6.7) H 09/05/19 06:58 Absolute Lymphocytes 0.57 k/cumm (1.2-3.4) L 09/05/19 06:58 Absolute Monocytes 0.33 k/cumm (0.11-0.7) 09/05/19 06:58 Absolute Eosinophils 0.00 k/cumm (0.0-0.7) 09/05/19 06:58 Absolute Basophils 0.00 k/cumm (0.0-0.2) 09/05/19 06:58 VBG pH 7.40 (7.35-7.45) 09/04/19 03:35 VBG pCO2 40 mm/Hg (34-47) 09/04/19 03:35 VBG pO2 35 mm/Hg (28-44) 09/04/19 03:35 VBG HCO3 25 mmol/L (22-28) 09/04/19 03:35 VBG Total CO2 23 mmol/L (22-29) 09/04/19 03:35 VBG O2 Saturation 62 % (70-80) L 09/04/19 03:35 VBG Base Excess 0.1 mmol/L (-3-3) 09/04/19 03:35 Sodium 124 mmol/L (136-145) L* 09/05/19 11:55 Potassium 3.3 mmol/L (3.5-5.1) L 09/05/19 11:55 Chloride 91 mmol/L (98-107) L 09/05/19 11:55 Carbon Dioxide 24.8 mmol/L (21.0-32.0) 09/05/19 11:55 Anion Gap 8.2 mmol/L (3-11) 09/05/19 11:55 BUN 8 mg/dL (7-18) 09/05/19 11:55 Creatinine 0.50 mg/dL (0.70-1.30) L 09/05/19 11:55 Estimated GFR/1.73 m2 >= 60.00 (mL/min/1.73m2) 09/05/19 11:55 Glucose 157 mg/dL (74-106) H 09/05/19 11:55 Calcium 8.1 mg/dL (8.5-10.1) L 09/05/19 11:55 Magnesium 1.7 mg/dL (1.8-2.4) L 09/05/19 06:58 Iron 73 ug/dL (65-175) 09/04/19 04:30 TIBC 283 ug/dL (250-450) 09/04/19 04:30 Transferrin % Sat 26 % (20-55) 09/04/19 04:30 Ferritin 197 ng/mL (26-388) 09/05/19 06:58 Total Bilirubin 0.5 mg/dL (0.2-1.0) 09/04/19 03:35 AST 34 U/L (15-37) 09/04/19 03:35 ALT 32 U/L (16-63) 09/04/19 03:35 Alkaline Phosphatase 96 U/L (46-116) 09/04/19 03:35 Troponin I < 0.05 ng/Ml (<0.06) 09/04/19 07:10 NT-Pro-B Natriuret Pep 362 pg/mL (<300) H 09/04/19 03:35 Total Protein 7.1 g/dL (6.4-8.2) 09/04/19 03:35 Albumin 3.8 g/dL (3.4-5.0) 09/04/19 03:35 Vitamin B12 490 pg/mL (193-986) 09/05/19 06:58 Folate > 20.0 ng/mL (8.6-20.0) H 09/05/19 06:58 Urine Color Yellow (Yellow) 09/04/19 04:30 Urine Clarity Clear (Clear) 09/04/19 04:30 Urine pH 7.0 (5-8) 09/04/19 04:30 Ur Specific [place] 1.020 (1.005-1.025) 09/04/19 04:30 Urine Protein Negative mg/dL (Negative) 09/04/19 04:30 Urine Ketones 15 mg/dL (Negative) H 09/04/19 04:30 Urine Blood Negative (Negative) 09/04/19 04:30 Urine Nitrite Negative (Negative) 09/04/19 04:30 Urine Bilirubin Negative (Negative) 09/04/19 04:30 Urine Urobilinogen 0.2 EU/dL (Up TO 0.2) 09/04/19 04:30 Ur Leukocyte Esterase Negative (Negative) 09/04/19 04:30 Urine Glucose Negative mg/dL (Negative) 09/04/19 04:30 COVID-19 PCR Negative (Negative) 09/04/19 03:40 Nasopharyn COVID-19 PCR Not Applicable 09/04/19 03:40 Ref Test Perform Site [facility] lab 09/04/19 03:40
--- NOTE | 2019-09-05 16:53 | PDOC.CMPRO ---
Care Management Progress Note S/O: Bonifacio remains on CV-19 precautions at this time. CM continues to follow. A: 63 year old male admitted to [facility] 09/04/19 for COPD exacerbation P: Anticipate Bonifacio will return home when medically cleared. He will resume current services, with possible transition to Hospice care per Palliative MD, Dr. Hair, who reported she would see Bonifacio today for a PC Consult. [facility] to [facility]. CM will continue to follow and support discharge planning considerations.
[2019-09-05] MEDS: methylPREDNISolone SUCC 125 MG VIAL 60 MG IVP (18:10)
[2019-09-05] MEDS: Atorvastatin 40 MG TAB PO (20:34)
[2019-09-05] MEDS: Melatonin 3 MG TAB 9 MG PO (20:36)
[2019-09-05 23:20] LABS: Anion Gap 6.4 mmol/L (3-11); BUN 10 mg/dL (7-18); CO2 26.6 mmol/L (21.0-32.0); CREATININE 0.58 mg/dL (0.70-1.30); Calcium 7.7 mg/dL (8.5-10.1); Chloride 94 mmol/L (98-107); Glucose 153 mg/dL (74-106); Potassium 3.5 mmol/L (3.5-5.1); Sodium 127 mmol/L (136-145)
[2019-09-06] VITALS (12 sets, daily range): BP systolic 108–145; BP diastolic 69–94; PULSE 62–83; RESP 8–20; TEMP 36.5–36.6; O2SAT 92–96
[2019-09-06] MEDS: Albuterol/Ipratropium 3 ML UPD VIAL UPD ×4 (00:52→17:56)
[2019-09-06] MEDS: Heparin 5,000 UNITS/ML VIAL 5000 UNITS SC ×2 (00:52→07:56)
[2019-09-06] MEDS: methylPREDNISolone SUCC 125 MG VIAL 60 MG IVP (00:53)
[2019-09-06] MEDS: MAGNESIUM SULFATE 2 GM/50 ML BAG IVPB (01:36)
[2019-09-06 07:30] LABS: Abs Immature Grans 0.01 k/cumm (0.0-0.09); Absolute Lymphocyte Count 0.24 k/cumm (1.2-3.4); Absolute Monocyte Count 0.34 k/cumm (0.11-0.7); Absolute Neutrophil Count 7.65 k/cumm (1.2-6.7); HCT 28.9 % (40.0-50.0); HGB 9.6 g/dL (13.5-17.5); Immature Grans % 0.1 %; Lymphocytes % 2.9; Mean Corp. HGB Concentration 33.2 g/dL (32.0-36.0); Mean Corpuscular Hemoglobin 27.5 pg (27.0-33.0); Mean Corpuscular Volume 82.8 fL (80-95); Mean Platelet Volume 8.9 fL (8.0-11.0); Monocytes % 4.1; Neutrophils % 92.9; Platelet Count 239 x1000/uL (130-400); RBC 3.49 m/cumm (4.50-6.00); RBC Distribution Width 18.9 % (11.8-14.1); White Blood Cell Count 8.24 k/cumm (4.4-10.8)
[2019-09-06 07:36] LABS: Anion Gap 8.6 mmol/L (3-11); BUN 8 mg/dL (7-18); CO2 23.4 mmol/L (21.0-32.0); CREATININE 0.47 mg/dL (0.70-1.30); Calcium 7.6 mg/dL (8.5-10.1); Chloride 96 mmol/L (98-107); Glucose 154 mg/dL (74-106); Magnesium 2.1 mg/dL (1.8-2.4); Sodium 128 mmol/L (136-145)
[2019-09-06 07:43] LABS: Anisocytosis 1+; Basophilic Stippling Present; Diff Comment RBC Morph Reviewed; Microcytosis 1+; Poikilocytes 1+
[2019-09-06] MEDS: Lisinopril 5 MG TAB 10 MG PO (07:55)
[2019-09-06] MEDS: Acetaminophen 325 MG TAB 650 MG PO (07:55)
[2019-09-06] MEDS: Ibuprofen 600 MG TAB PO ×3 (07:55→19:43)
[2019-09-06] MEDS: dilTIAZem CD 120 MG CAPCR 360 MG PO (07:55)
[2019-09-06] MEDS: Magnesium Oxide 400 MG TAB PO ×2 (07:55→19:43)
[2019-09-06] MEDS: Finasteride 5 MG TAB PO (07:55)
[2019-09-06] MEDS: Omeprazole 20 MG CAPCR PO (07:56)
[2019-09-06] MEDS: Aspirin E.C. 81 MG TABEC PO (07:56)
[2019-09-06] MEDS: Multivitamin TAB 1 TAB PO (07:56)
[2019-09-06] MEDS: LORazepam 0.5 MG TAB PO ×4 (07:56→23:25)
[2019-09-06] MEDS: cefTRIAXone 1 GM/50 ML BAG IVPB (07:56)
[2019-09-06] MEDS: Mylanta Suspension 30 ML CUP PO (08:04)
[2019-09-06] MEDS: Budesonide/Formoterol 160/4.5 6 GM 60 PUFF INH IH ×2 (08:20→19:43)
[2019-09-06 08:38] LABS: Troponin I 0.05 ng/Ml (<0.06)
--- NOTE | 2019-09-06 08:46 | PDOC.CMPRO ---
- If Service Date Differs Date of service: 09/06/19 Time of Service: 08:46 Care Management Progress Note S/O: Bonifacio will be discharged home on 09/07/2019 at 1100 and be admitted to hospice the same day. He is now comfort measures only and his friend Ata is able to visit. CM notified Hospice that patient will need oxygen set up through [facility] RT will ensure that he has a Adina tank for transfer. AMY contacted Adalgisa Gutierrez RN [facility] she will approve patient for payment however will be reasonable for orders from here on out. [facility] will need [facility] palliative care note and discharge summary faxed to them when patient is discharge. has faxed this note to Home Health with the O2 needs. A: 63 year old male admitted to [facility] 09/04/19 for COPD exacerbation, now comfort measures and will be discharged home on Hospice for same day admission. P: Bonifacio will plan to be discharged by 1100 am on and admitted to hospice. Dr. Hair has completed the hospice orders and left them with home health. Hospice to set up home oxygen and RT to send home with a Adina o2 tank for discharge.
--- NOTE | 2019-09-06 09:56 | RESPIRATORY ---
Was informed Pt was SOB and had an EKG ordered. I entered Pt room to perform EKG and asked Pt about 4 lpm NC. Pt stated that he was SOB all night and that he turned the oxygen up himself. Pt placed back on 2 lpm with SpO2 between 89%-91%.
--- NOTE | 2019-09-06 10:32 | PGE_ITS ---
Date of Service Date of service: 09/06/19 Time of Service: 07:10 Assessment and Plan Assessment and plan (1) Musculoskeletal chest pain: Status: Acute Assessment and plan: At this point, no further workup is indicated. Focus on symptom management - on NSAIDS; added prn IV morphine. Will titrate to comfort. (2) COPD exacerbation: Status: Acute Assessment and plan: with worsening O2 requirement overnight. Not better today - in fact, worse, but as the goal is to discharge patient to home hospice/start comfort measures, will transition to PO steroids. COVID-19 ruled out. Transition antibiotics to PO. (3) Acute hyponatremia: Status: Acute Assessment and plan: Near baseline with IV hydration at this point. D/c IVF and focus on comfort measures. (4) Myocardial infarction: Status: Ruled-out Assessment and plan: No ACS. Today's chest pain is noncardiac. Qualifiers: Myocardial infarction type: non-ST elevation myocardial infarction Qualified Code(s): I21.4 - Non-ST elevation (NSTEMI) myocardial infarction (5) Anxiety: Status: Chronic Assessment and plan: Continue outpatient lorazepam as ordered (6) BPH (benign prostatic hyperplasia): Status: Chronic Assessment and plan: No evidence of urinary retention here by PVRs. Self- catheterizes at home. Qualifiers: Lower urinary tract symptom presence: symptoms present Lower urinary tract symptom detail: urinary retention Qualified Code(s): N40.1 - Benign prostatic hyperplasia with lower urinary tract symptoms; R33.8 - Other retention of urine (7) COVID-19 ruled out: Status: Ruled-out (8) DVT prophylaxis: Status: Acute Assessment and plan: D/c chemical DVT ppx - focus on comfort measures only. (9) Discharge planning issues: Status: Acute Assessment and plan: DNR/DNI Plan to discharge patient home with hospice tomorrow. Transition to comfort measures today. Discussed with Dr Hair. Subjective Subjective Interval history since last seen: The patient reports chest discomfort for the majority of the night. Also, oxygen requirement has increased to 4L overnight. The pain is left-sided, covers the entire L-side of the chest, is dull, reproducible with palpation, worse with movement/inspiration. The patient admits to having had multiple rib fractures on the right side before, but not the left. Nitroglycerin did not help the pain. He then met with palliative care (Dr Hair) and stated he would like to go home on hospice and is being comfort measures only as of right now. Exam Narrative Exam Narrative: General: pleasant middle-aged male, looks older than his age, anxious/uncomfortable, A&Ox3, appears to be shorter of breath. HEENT: EOMI, MMM Heart: RRR, mildly tachycardic Lungs: Diminished breath sounds B with bilateral air entry, no wheezing Abdomen: soft, nontender, nondistended Extremities: no edema BLE's. Objective Objective Clinical Data: Abnormal lab results 09/05/19 09/05/19 09/06/19 Range/Units 11:55 23:00 07:10 RBC (4.50-6.00) m/cumm Hgb (13.5-17.5) g/dL Hct (40.0-50.0) % RDW (11.8-14.1) % Absolute Neutrophils (1.2-6.7) k/cumm Absolute Lymphocytes (1.2-3.4) k/cumm Sodium 124 L* 127 L 128 L (136-145) mmol/L Potassium 3.3 L 3.0 L (3.5-5.1) mmol/L Chloride 91 L 94 L 96 L (98-107) mmol/L Creatinine 0.50 L 0.58 L 0.47 L (0.70-1.30) mg/dL Glucose 157 H 153 H 154 H (74-106) mg/dL Calcium 8.1 L 7.7 L 7.6 L (8.5-10.1) mg/dL 09/06/19 Range/Units 07:10 RBC 3.49 L (4.50-6.00) m/cumm Hgb 9.6 L D (13.5-17.5) g/dL Hct 28.9 L (40.0-50.0) % RDW 18.9 H (11.8-14.1) % Absolute Neutrophils 7.65 H (1.2-6.7) k/cumm Absolute Lymphocytes 0.24 L (1.2-3.4) k/cumm Sodium (136-145) mmol/L Potassium (3.5-5.1) mmol/L Chloride (98-107) mmol/L Creatinine (0.70-1.30) mg/dL Glucose (74-106) mg/dL Calcium (8.5-10.1) mg/dL Vital Signs Temperature 36.5 C 09/06/19 07:44 Temperature Source Tympanic 09/06/19 07:44 Pulse 62 09/06/19 07:44 Pulse Rhythm Regular 09/06/19 05:20 Pulse 105 H 09/04/19 05:00 Respiratory Rate 20 09/06/19 07:44 Respiratory Effort Grunting 09/06/19 05:20 Respiratory Depth Shallow 09/06/19 05:20 Respiratory Pattern Normal 09/06/19 05:20 Blood Pressure 145/72 H 09/06/19 07:44 Blood Pressure Mean 118 09/04/19 03:32 Pulse Oximetry 92 L 09/06/19 07:44 Oxygen Delivery Method Nasal Cannula 09/06/19 07:44 Oxygen Flow Rate 4 09/06/19 07:44 Pain Level 8 09/06/19 07:55 Comment 09/04/19 10:03 Intake & Output 09/05/19 09/05/19 09/06/19 11:59 23:59 11:59 Intake Total 1343.333 / 1583.333 240 / 1583.333 Output Total 950 / 1200 250 / 1200 1225 / 1225 Balance 393.333 / 383.333 -10 / 383.333 -1225 / -1225 Weight 50.3 kg 51.4 kg Intake: IV 1103.333 / 1103.333 Oral 240 / 480 240 / 480 Output: Urine 900 / 1150 250 / 1150 1225 / 1225 Post Void Residual 50 / 50 Other: Urine Color Straw Yellow Urine Appearance Clear Clear Clear Urine Odor Normal Stool Size Moderate Stool Characteristics Formed Voiding Methods Urinal Urinal Urinal Laboratory Results WBC 8.24 k/cumm (4.4-10.8) 09/06/19 07:10 RBC 3.49 m/cumm (4.50-6.00) L 09/06/19 07:10 Hgb 9.6 g/dL (13.5-17.5) L D 09/06/19 07:10 Hct 28.9 % (40.0-50.0) L 09/06/19 07:10 MCV 82.8 fL (80-95) 09/06/19 07:10 MCH 27.5 pg (27.0-33.0) 09/06/19 07:10 MCHC 33.2 g/dL (32.0-36.0) 09/06/19 07:10 RDW 18.9 % (11.8-14.1) H 09/06/19 07:10 Plt Count 239 x1000/uL (130-400) 09/06/19 07:10 MPV 8.9 fL (8.0-11.0) 09/06/19 07:10 Immature Gran % 0.1 % 09/06/19 07:10 Neutrophils % 92.9 09/06/19 07:10 Lymphocytes % 2.9 09/06/19 07:10 Monocytes % 4.1 09/06/19 07:10 Eosinophils % 0.0 09/06/19 07:10 Basophils % 0.0 09/06/19 07:10 Absolute Neutrophils 7.65 k/cumm (1.2-6.7) H 09/06/19 07:10 Absolute Lymphocytes 0.24 k/cumm (1.2-3.4) L 09/06/19 07:10 Absolute Monocytes 0.34 k/cumm (0.11-0.7) 09/06/19 07:10 Absolute Eosinophils 0.00 k/cumm (0.0-0.7) 09/06/19 07:10 Absolute Basophils 0.00 k/cumm (0.0-0.2) 09/06/19 07:10 Differential Comment Rbc morph reviewed 09/06/19 07:10 RBC Morphology See below 09/06/19 07:10 Poikilocytosis 1+ 09/06/19 07:10 Basophilic Stippling Present 09/06/19 07:10 Anisocytosis 1+ 09/06/19 07:10 Microcytosis 1+ 09/06/19 07:10 VBG pH 7.40 (7.35-7.45) 09/04/19 03:35 VBG pCO2 40 mm/Hg (34-47) 09/04/19 03:35 VBG pO2 35 mm/Hg (28-44) 09/04/19 03:35 VBG HCO3 25 mmol/L (22-28) 09/04/19 03:35 VBG Total CO2 23 mmol/L (22-29) 09/04/19 03:35 VBG O2 Saturation 62 % (70-80) L 09/04/19 03:35 VBG Base Excess 0.1 mmol/L (-3-3) 09/04/19 03:35 Sodium 128 mmol/L (136-145) L 09/06/19 07:10 Potassium 3.0 mmol/L (3.5-5.1) L 09/06/19 07:10 Chloride 96 mmol/L (98-107) L 09/06/19 07:10 Carbon Dioxide 23.4 mmol/L (21.0-32.0) 09/06/19 07:10 Anion Gap 8.6 mmol/L (3-11) 09/06/19 07:10 BUN 8 mg/dL (7-18) 09/06/19 07:10 Creatinine 0.47 mg/dL (0.70-1.30) L 09/06/19 07:10 Estimated GFR/1.73 m2 >= 60.00 (mL/min/1.73m2) 09/06/19 07:10 Glucose 154 mg/dL (74-106) H 09/06/19 07:10 Calcium 7.6 mg/dL (8.5-10.1) L 09/06/19 07:10 Magnesium 2.1 mg/dL (1.8-2.4) 09/06/19 07:10 Iron 73 ug/dL (65-175) 09/04/19 04:30 TIBC 283 ug/dL (250-450) 09/04/19 04:30 Transferrin % Sat 26 % (20-55) 09/04/19 04:30 Ferritin 197 ng/mL (26-388) 09/05/19 06:58 Total Bilirubin 0.5 mg/dL (0.2-1.0) 09/04/19 03:35 AST 34 U/L (15-37) 09/04/19 03:35 ALT 32 U/L (16-63) 09/04/19 03:35 Alkaline Phosphatase 96 U/L (46-116) 09/04/19 03:35 Troponin I Cancelled 09/06/19 12:00 NT-Pro-B Natriuret Pep 362 pg/mL (<300) H 09/04/19 03:35 Total Protein 7.1 g/dL (6.4-8.2) 09/04/19 03:35 Albumin 3.8 g/dL (3.4-5.0) 09/04/19 03:35 Vitamin B12 490 pg/mL (193-986) 09/05/19 06:58 Folate > 20.0 ng/mL (8.6-20.0) H 09/05/19 06:58 Urine Color Yellow (Yellow) 09/04/19 04:30 Urine Clarity Clear (Clear) 09/04/19 04:30 Urine pH 7.0 (5-8) 09/04/19 04:30 Ur Specific [place] 1.020 (1.005-1.025) 09/04/19 04:30 Urine Protein Negative mg/dL (Negative) 09/04/19 04:30 Urine Ketones 15 mg/dL (Negative) H 09/04/19 04:30 Urine Blood Negative (Negative) 09/04/19 04:30 Urine Nitrite Negative (Negative) 09/04/19 04:30 Urine Bilirubin Negative (Negative) 09/04/19 04:30 Urine Urobilinogen 0.2 EU/dL (Up TO 0.2) 09/04/19 04:30 Ur Leukocyte Esterase Negative (Negative) 09/04/19 04:30 Urine Glucose Negative mg/dL (Negative) 09/04/19 04:30 COVID-19 PCR Negative (Negative) 09/04/19 03:40 Nasopharyn COVID-19 PCR Not Applicable 09/04/19 03:40 Ref Test Perform Site [facility] 09/04/19 03:40
--- NOTE | 2019-09-06 11:27 | NS.NUTBLAN_ITS ---
Date of service: 09/06/19 Time of Service: 11:27 Nutritional Consult ASSESSMENT: 63 year old male admitted with end stage COPD, admitted with SOB, hyponatremia to be discharged tomorrow to home on hospice care. 15 lbs weight loss noted in last 6 months, BMI indicates severe protein calorie malnutrition. Met with Bonifacio today, he does not want referral to meals on wheels, states that he has enough resources for balanced meals when he goes home. He reports he is dying and his appetite has been declining in last year. Estimated Needs: 1500- 1600 kcal, 50-60 g protein, 1600 ml fluid. Following Heart Healthy Diet with poor intake, refuses meals often. recommend liberalize diet to regular for increase in variety. Bonifacio says all he wants to eat are milkshakes and soups, and needs mugs with lids for self feeding as with tremor. Expect continued weight loss/decline in view of diagnosis/prognosis. NUTRITIONAL DIAGNOSIS: severe protein calorie malnutrition as evidenced by low BMI and 13% weight loss in last 6 months due to decline in po intake secondary to end stage COPD/lack of appetite. INTERVENTION: will provide mugs for ease in self feeding WIll provide meal preferences such as soups, milkshakes MONITORING AND EVALUATION: weight, po intake, labs Time Spent in Nutritional Counseling and Treatment: 15 min spent face to face
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
[2019-09-06] MEDS: Doxycycline Hyclate 100 MG CAP PO (19:43)
[2019-09-06] MEDS: predniSONE 20 MG TAB 60 MG PO (19:43)
[2019-09-06] MEDS: Nicotine 21 MG/24 HR PATCH TD (19:44)
[2019-09-06] MEDS: Melatonin 3 MG TAB 9 MG PO (22:07)
[2019-09-07 04:19] VITALS: BP 146/79; PULSE 76; RESP 19; TEMP 36.9; O2SAT 97
[2019-09-07] MEDS: Albuterol/Ipratropium 3 ML UPD VIAL UPD (05:56)
[2019-09-07] MEDS: Budesonide/Formoterol 160/4.5 6 GM 60 PUFF INH IH (07:50)
[2019-09-07] MEDS: LORazepam 0.5 MG TAB PO (08:36)
[2019-09-07] MEDS: predniSONE 20 MG TAB 60 MG PO (08:36)
[2019-09-07] MEDS: Ibuprofen 600 MG TAB PO (08:36)
[2019-09-07] MEDS: dilTIAZem CD 120 MG CAPCR 360 MG PO (08:36)
[2019-09-07] MEDS: Magnesium Oxide 400 MG TAB PO (08:36)
[2019-09-07] MEDS: Cefuroxime 250 MG TAB PO (08:36)
[2019-09-07] MEDS: Finasteride 5 MG TAB PO (08:36)
[2019-09-07] MEDS: Aspirin E.C. 81 MG TABEC PO (08:36)
[2019-09-07] MEDS: Doxycycline Hyclate 100 MG CAP PO (08:36)
[2019-09-07] MEDS: Omeprazole 20 MG CAPCR PO (08:36)
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
--- NOTE | 2019-09-07 16:57 | PDOC.CMDIS ---
- If Service Date Differs Date of service: 09/07/19 Time of Service: 16:57 LACE Index Scoring Tool - Questions: Length of Stay (in days): 4 - 6 Acuity (Admit via E.D.?): Yes Comorbidities: Chronic Pulmonary Disease E.D. Visits: 3 - Answers: Total Score: 12 Risk of Readmission: High Risk Care Management Discharge Reason for Hospitalization: COPD Exacerbation Discharge Plan: Bonifacio returned home today and will be admitted to Hospice later today. [facility] would be delivering equipment, including O2 this afternoon around 3pm. CM coordinated with RT to ensure that Bonifacio would have O2. RT sent two tanks home to keep his SAT's up until [facility] delivers their tanks. CM called and talked to Ata Bonifacio's s/o, who stated that he would return the O2 tanks either this afternoon or tomorrow morning. CM coordinated his transport via [facility]. Patient/Family Education Needs: Review discharge instructions and expectations for Hospice support, discussion of goals of care. Services Needed at Discharge: DME Agency ([facility] ), Home Health Care Services (Hospice), Transportation ([facility])
== END 2019-09-07 11:02 | disposition home health service (06) | DRG 190 ==
LOC: ER 05:30 → MS 05:32
PROVIDERS: General Practice; Admitting Provider Family Medicine; Emergency Provider Student in an Organized Health Care Education/Training Program; PCP Internal Medicine; Visit Provider Internal Medicine
DX: J44.1 Chronic obstructive pulmonary disease with (acute) exacerbation (principal); J18.9 Pneumonia, unspecified organism; R64 Cachexia; Z68.1 Body mass index [BMI] 19.9 or less, adult; E87.1 Hypo-osmolality and hyponatremia; J44.0 Chronic obstructive pulmonary disease with (acute) lower respiratory infection; R09.02 Hypoxemia; R07.89 Other chest pain; E87.5 Hyperkalemia; I25.2 Old myocardial infarction; F41.9 Anxiety disorder, unspecified; N40.0 Benign prostatic hyperplasia without lower urinary tract symptoms; Z51.5 Encounter for palliative care; Z66 Do not resuscitate; I10 Essential (primary) hypertension; K21.9 Gastro-esophageal reflux disease without esophagitis; Z78.9 Other specified health status; Z03.818 Encounter for observation for suspected exposure to other biological agents ruled out; Z71.3 Dietary counseling and surveillance; Z99.81 Dependence on supplemental oxygen; Z71.89 Other specified counseling; F17.210 Nicotine dependence, cigarettes, uncomplicated
CPT/HCPCS: 36415; 80048; 80053; 82805; 87040; 93005; 94640; 96361; 96374; 99223; 99232; 99233; 99239; 99255; 99285; 99406; NC; U0003; 71045; 81003; 82607; 82728; 82746; 83540; 83550; 83735; 83880; 84484; 85025; 93010; J0696; J1644; J2930; J7512; J7620

== ENCOUNTER 2019-12-01 17:59 | Outpatient (REF) | payer OTHER, SELFPAY ==
[2019-12-01 15:35] LABS: Bilirubin Negative (Negative); Blood Negative (Negative); Clarity Clear (Clear); Glucose Negative (Negative); Ketones Negative (Negative); Leukocyte Esterase Negative (Negative); Nitrite Negative (Negative); Urobilinogen 0.2 EU/dL (Up TO 0.2)
== END 2019-12-01 18:19 ==
LOC: LBN 17:59
PROVIDERS: PCP Internal Medicine; Visit Provider Family Medicine
DX: N40.1 Benign prostatic hyperplasia with lower urinary tract symptoms (principal)
CPT/HCPCS: 81003